=== PATIENT | male | born 1945 | race Caucasian/White ===

== ENCOUNTER → 2020-06-11 09:19 | Outpatient (BNVA) | payer MEDICARE, SELFPAY | PROVIDERS: PCP Internal Medicine; Visit Provider Internal Medicine | DX: I48.20 Chronic atrial fibrillation, unspecified (principal); Z51.81 Encounter for therapeutic drug level monitoring; Z79.01 Long term (current) use of anticoagulants | CPT/HCPCS: 85610; 99211 ==

== ENCOUNTER → 2020-06-24 08:49 | Outpatient (BNV) | payer MEDICARE, SELFPAY | PROVIDERS: PCP Internal Medicine; Visit Provider Internal Medicine Medical Oncology | DX: D61.818 Other pancytopenia (principal); D47.2 Monoclonal gammopathy; Z86.2 Personal history of diseases of the blood and blood-forming organs and certain disorders involving the immune mechanism | CPT/HCPCS: 99213; 99214 ==

== ENCOUNTER → 2020-08-27 09:23 | Outpatient (BNVA) | payer MEDICARE, SELFPAY | PROVIDERS: PCP Internal Medicine; Visit Provider Internal Medicine | DX: I48.20 Chronic atrial fibrillation, unspecified (principal); Z79.01 Long term (current) use of anticoagulants; Z51.81 Encounter for therapeutic drug level monitoring | CPT/HCPCS: 85610; 99211 ==

== ENCOUNTER → 2020-10-08 09:13 | Outpatient (BNVA) | payer MEDICARE, SELFPAY | PROVIDERS: PCP Internal Medicine; Visit Provider Internal Medicine | DX: I48.20 Chronic atrial fibrillation, unspecified (principal); Z51.81 Encounter for therapeutic drug level monitoring; Z79.01 Long term (current) use of anticoagulants | CPT/HCPCS: 85610; 99211 ==

== ENCOUNTER → 2020-11-05 09:13 | Outpatient (BNVA) | payer MEDICARE, SELFPAY | PROVIDERS: PCP Internal Medicine; Visit Provider Internal Medicine | DX: I48.20 Chronic atrial fibrillation, unspecified (principal); Z51.81 Encounter for therapeutic drug level monitoring; Z79.01 Long term (current) use of anticoagulants | CPT/HCPCS: 85610; 99211 ==

== ENCOUNTER → 2020-12-03 09:16 | Outpatient (BNVA) | payer MEDICARE, SELFPAY | PROVIDERS: PCP Internal Medicine; Visit Provider Internal Medicine | DX: I48.20 Chronic atrial fibrillation, unspecified (principal); Z51.81 Encounter for therapeutic drug level monitoring; Z79.01 Long term (current) use of anticoagulants | CPT/HCPCS: 85610; 99211 ==

== ENCOUNTER → 2020-12-31 09:11 | Outpatient (BNVA) | payer MEDICARE, SELFPAY | PROVIDERS: PCP Internal Medicine; Visit Provider Internal Medicine | DX: I48.20 Chronic atrial fibrillation, unspecified (principal); Z51.81 Encounter for therapeutic drug level monitoring; Z79.01 Long term (current) use of anticoagulants | CPT/HCPCS: 85610; 99211 ==

== ENCOUNTER → 2021-01-07 09:09 | Outpatient (BNVA) | payer MEDICARE, SELFPAY | PROVIDERS: PCP Internal Medicine; Visit Provider Internal Medicine | DX: I48.0 Paroxysmal atrial fibrillation (principal); Z51.81 Encounter for therapeutic drug level monitoring; Z79.01 Long term (current) use of anticoagulants | CPT/HCPCS: 85610; 99211 ==

== ENCOUNTER → 2021-02-04 08:58 | Outpatient (BNVA) | payer MEDICARE, SELFPAY | PROVIDERS: PCP Internal Medicine; Visit Provider Internal Medicine | DX: I48.20 Chronic atrial fibrillation, unspecified (principal); Z51.81 Encounter for therapeutic drug level monitoring; Z79.01 Long term (current) use of anticoagulants | CPT/HCPCS: 85610; 99211 ==

== ENCOUNTER → 2021-03-04 09:10 | Outpatient (BNVA) | payer MEDICARE, SELFPAY | PROVIDERS: PCP Internal Medicine; Visit Provider Internal Medicine | DX: I48.20 Chronic atrial fibrillation, unspecified (principal); Z51.81 Encounter for therapeutic drug level monitoring; Z79.01 Long term (current) use of anticoagulants | CPT/HCPCS: 85610; 99211 ==

== ENCOUNTER → 2021-04-01 08:05 | Outpatient (BNVA) | payer MEDICARE, SELFPAY | PROVIDERS: PCP Internal Medicine; Visit Provider Internal Medicine | DX: I48.20 Chronic atrial fibrillation, unspecified (principal); Z51.81 Encounter for therapeutic drug level monitoring; Z79.01 Long term (current) use of anticoagulants | CPT/HCPCS: 85610; 99211 ==

== ENCOUNTER → 2021-04-29 09:12 | Outpatient (BNVA) | payer MEDICARE, SELFPAY | PROVIDERS: PCP Internal Medicine; Visit Provider Internal Medicine | DX: I48.20 Chronic atrial fibrillation, unspecified (principal); Z51.81 Encounter for therapeutic drug level monitoring; Z79.01 Long term (current) use of anticoagulants | CPT/HCPCS: 85610; 99211 ==

== ENCOUNTER → 2021-05-27 09:13 | Outpatient (BNVA) | payer MEDICARE, SELFPAY | PROVIDERS: PCP Internal Medicine; Visit Provider Internal Medicine | DX: I48.20 Chronic atrial fibrillation, unspecified (principal); Z51.81 Encounter for therapeutic drug level monitoring; Z79.01 Long term (current) use of anticoagulants | CPT/HCPCS: 85610; 99211 ==

== ENCOUNTER → 2021-06-24 09:11 | Outpatient (BNVA) | payer MEDICARE, SELFPAY | PROVIDERS: PCP Internal Medicine; Visit Provider Internal Medicine | DX: I48.20 Chronic atrial fibrillation, unspecified (principal); Z51.81 Encounter for therapeutic drug level monitoring; Z79.01 Long term (current) use of anticoagulants | CPT/HCPCS: 85610; 99211 ==

== ENCOUNTER → 2021-07-22 09:19 | Outpatient (BNVA) | payer MEDICARE, SELFPAY | PROVIDERS: PCP Internal Medicine; Visit Provider Internal Medicine | DX: I48.20 Chronic atrial fibrillation, unspecified (principal); Z51.81 Encounter for therapeutic drug level monitoring; Z79.01 Long term (current) use of anticoagulants | CPT/HCPCS: 85610; 99211 ==

== ENCOUNTER → 2021-08-19 09:20 | Outpatient (BNVA) | payer MEDICARE, SELFPAY | PROVIDERS: PCP Internal Medicine; Visit Provider Internal Medicine | DX: I48.20 Chronic atrial fibrillation, unspecified (principal); Z51.81 Encounter for therapeutic drug level monitoring; Z79.01 Long term (current) use of anticoagulants | CPT/HCPCS: 85610; 99211 ==

== ENCOUNTER → 2021-09-16 09:13 | Outpatient (BNVA) | payer MEDICARE, SELFPAY | PROVIDERS: PCP Internal Medicine; Visit Provider Internal Medicine | DX: I48.20 Chronic atrial fibrillation, unspecified (principal); Z51.81 Encounter for therapeutic drug level monitoring; Z79.01 Long term (current) use of anticoagulants | CPT/HCPCS: 85610; 99211 ==

== ENCOUNTER → 2021-10-14 09:15 | Outpatient (BNVA) | payer MEDICARE, SELFPAY | PROVIDERS: PCP Internal Medicine; Visit Provider Internal Medicine | DX: I48.20 Chronic atrial fibrillation, unspecified (principal); Z51.81 Encounter for therapeutic drug level monitoring; Z79.01 Long term (current) use of anticoagulants | CPT/HCPCS: 85610; 99211 ==

== ENCOUNTER → 2021-11-12 09:22 | Outpatient (BNVA) | payer MEDICARE, SELFPAY | PROVIDERS: PCP Internal Medicine; Visit Provider Internal Medicine | DX: I48.20 Chronic atrial fibrillation, unspecified (principal); Z51.81 Encounter for therapeutic drug level monitoring; Z79.01 Long term (current) use of anticoagulants | CPT/HCPCS: 85610; 99211 ==

== ENCOUNTER → 2021-12-09 09:13 | Outpatient (BNVA) | payer MEDICARE, SELFPAY | PROVIDERS: PCP Internal Medicine; Visit Provider Internal Medicine | DX: I48.20 Chronic atrial fibrillation, unspecified (principal); Z51.81 Encounter for therapeutic drug level monitoring; Z79.01 Long term (current) use of anticoagulants | CPT/HCPCS: 85610; 99211 ==

== ENCOUNTER → 2022-01-13 09:26 | Outpatient (BNVA) | payer MEDICARE, SELFPAY | PROVIDERS: PCP Internal Medicine; Visit Provider Internal Medicine | DX: I48.20 Chronic atrial fibrillation, unspecified (principal); Z79.01 Long term (current) use of anticoagulants; Z51.81 Encounter for therapeutic drug level monitoring | CPT/HCPCS: 85610; 99211 ==

== ENCOUNTER → 2022-02-10 09:29 | Outpatient (BNVA) | payer MEDICARE, SELFPAY | PROVIDERS: PCP Internal Medicine; Visit Provider Internal Medicine | DX: I48.20 Chronic atrial fibrillation, unspecified (principal); Z79.01 Long term (current) use of anticoagulants; Z51.81 Encounter for therapeutic drug level monitoring | CPT/HCPCS: 85610; 99211 ==

== ENCOUNTER → 2022-03-10 09:31 | Outpatient (BNVA) | payer MEDICARE, SELFPAY | PROVIDERS: PCP Internal Medicine; Visit Provider Internal Medicine | DX: I48.20 Chronic atrial fibrillation, unspecified (principal); Z79.01 Long term (current) use of anticoagulants; Z51.81 Encounter for therapeutic drug level monitoring | CPT/HCPCS: 85610; 99211 ==

== ENCOUNTER 2022-03-29 12:46 | Outpatient (REF) | payer MEDICARE, SELFPAY ==
[2022-03-29 12:59] VITALS: BMI 26.4
[2022-03-29 13:03] VITALS: BP 189/83; PULSE 53; RESP 16; TEMP 36.9; O2SAT 95
== END 2022-03-29 12:47 | disposition home or self-care (01) ==
LOC: HO.MS 12:46
PROVIDERS: PCP Internal Medicine; Visit Provider Ophthalmology
PROC: (CPT 66821; principal; 2022-03-29 15:00)
DX: H26.491 Other secondary cataract, right eye (principal); Z96.1 Presence of intraocular lens; H40.013 Open angle with borderline findings, low risk, bilateral; D64.9 Anemia, unspecified
CPT/HCPCS: 66821

== ENCOUNTER → 2022-04-07 09:29 | Outpatient (BNVA) | payer MEDICARE, SELFPAY | PROVIDERS: PCP Internal Medicine; Visit Provider Internal Medicine | DX: I48.20 Chronic atrial fibrillation, unspecified (principal); Z79.01 Long term (current) use of anticoagulants; Z51.81 Encounter for therapeutic drug level monitoring | CPT/HCPCS: 85610; 99211 ==

== ENCOUNTER → 2022-05-05 08:22 | Outpatient (BNVA) | payer MEDICARE, SELFPAY | PROVIDERS: PCP Internal Medicine; Visit Provider Internal Medicine | DX: I48.20 Chronic atrial fibrillation, unspecified (principal); Z79.01 Long term (current) use of anticoagulants; Z51.81 Encounter for therapeutic drug level monitoring | CPT/HCPCS: 85610; 99211 ==

== ENCOUNTER → 2022-06-03 09:31 | Outpatient (BNVA) | payer MEDICARE, SELFPAY | PROVIDERS: PCP Internal Medicine; Visit Provider Internal Medicine | DX: I48.20 Chronic atrial fibrillation, unspecified (principal); Z79.01 Long term (current) use of anticoagulants; Z51.81 Encounter for therapeutic drug level monitoring | CPT/HCPCS: 85610; 99211 ==

== ENCOUNTER → 2022-06-30 09:11 | Outpatient (BNVA) | payer MEDICARE, SELFPAY | PROVIDERS: PCP Internal Medicine; Visit Provider Internal Medicine | DX: I48.20 Chronic atrial fibrillation, unspecified (principal); Z79.01 Long term (current) use of anticoagulants; Z51.81 Encounter for therapeutic drug level monitoring | CPT/HCPCS: 85610; 99211 ==

== ENCOUNTER → 2022-07-28 09:18 | Outpatient (BNVA) | payer MEDICARE, SELFPAY | PROVIDERS: PCP Internal Medicine; Visit Provider Internal Medicine | DX: I48.20 Chronic atrial fibrillation, unspecified (principal); Z79.01 Long term (current) use of anticoagulants; Z51.81 Encounter for therapeutic drug level monitoring | CPT/HCPCS: 85610; 99211 ==

== ENCOUNTER → 2022-08-25 09:07 | Outpatient (BNVA) | payer MEDICARE, SELFPAY | PROVIDERS: PCP Internal Medicine; Visit Provider Internal Medicine | DX: I48.20 Chronic atrial fibrillation, unspecified (principal); Z79.01 Long term (current) use of anticoagulants; Z51.81 Encounter for therapeutic drug level monitoring | CPT/HCPCS: 85610; 99211 ==

== ENCOUNTER → 2022-09-22 09:04 | Outpatient (BNVA) | payer MEDICARE, SELFPAY | PROVIDERS: PCP Internal Medicine; Visit Provider Internal Medicine | DX: I48.20 Chronic atrial fibrillation, unspecified (principal); Z79.01 Long term (current) use of anticoagulants; Z51.81 Encounter for therapeutic drug level monitoring | CPT/HCPCS: 85610; 99211 ==

== ENCOUNTER → 2022-10-20 09:23 | Outpatient (BNVA) | payer MEDICARE, SELFPAY | PROVIDERS: PCP Internal Medicine; Visit Provider Internal Medicine | DX: I48.20 Chronic atrial fibrillation, unspecified (principal); Z79.01 Long term (current) use of anticoagulants; Z51.81 Encounter for therapeutic drug level monitoring | CPT/HCPCS: 85610; 99211 ==

== ENCOUNTER → 2022-11-18 10:39 | Outpatient (BNVA) | payer MEDICARE, SELFPAY | PROVIDERS: PCP Internal Medicine; Visit Provider Internal Medicine | DX: I48.20 Chronic atrial fibrillation, unspecified (principal); Z79.01 Long term (current) use of anticoagulants; Z51.81 Encounter for therapeutic drug level monitoring | CPT/HCPCS: 85610; 99211 ==

== ENCOUNTER → 2022-12-15 09:17 | Outpatient (BNVA) | payer MEDICARE, SELFPAY | PROVIDERS: PCP Internal Medicine; Visit Provider Internal Medicine | DX: I48.20 Chronic atrial fibrillation, unspecified (principal); Z51.81 Encounter for therapeutic drug level monitoring; Z79.01 Long term (current) use of anticoagulants | CPT/HCPCS: 85610; 99211 ==

== ENCOUNTER → 2023-01-12 09:15 | Outpatient (BNVA) | payer MEDICARE, SELFPAY | PROVIDERS: PCP Internal Medicine; Visit Provider Internal Medicine | DX: I48.20 Chronic atrial fibrillation, unspecified (principal); Z79.01 Long term (current) use of anticoagulants; Z51.81 Encounter for therapeutic drug level monitoring | CPT/HCPCS: 85610; 99211 ==

== ENCOUNTER → 2023-02-08 09:10 | Outpatient (BNVA) | payer MEDICARE, SELFPAY | PROVIDERS: PCP Internal Medicine; Visit Provider Internal Medicine | DX: I48.20 Chronic atrial fibrillation, unspecified (principal); Z79.01 Long term (current) use of anticoagulants; Z51.81 Encounter for therapeutic drug level monitoring | CPT/HCPCS: 85610; 99211 ==

== ENCOUNTER 2023-02-21 08:36 | Outpatient (REF) | payer MEDICARE, SELFPAY ==
--- NOTE | ~2023-02-21 | XR_ITS ---
EXAMINATION: XR CHEST CLINICAL INFORMATION: Edema COMPARISON: 10/23/2007 TECHNIQUE: 2 views of the chest were obtained. FINDINGS: There is no evidence of acute parenchymal disease, pneumothorax, or pleural effusion. The cardiopericardial silhouette is enlarged. No evidence of pulmonary edema. XR/XR chest 2V IMPRESSION: 1. No acute parenchymal disease. 2. Mild cardiomegaly without pulmonary vascular congestion identified.
[2023-02-21 09:38] LABS: Appearance Urine Clear; Color Urine Dark Yellow; Glucose Urine UA 250 mg/dL (Negative); Leukocyte Esterase Urine Negative (Negative); Nitrite Urine Negative (Negative); PH 6.5 (5.0-9.0); Urine Blood Negative (Negative); Urine Ketones Negative (Negative); Urine Protein Negative (Neg-Trace)
[2023-02-21 10:09] LABS: Alanine Aminotransferase 20 U/L (0-40); Alkaline Phosphatase 60 U/L (39-117); Anion Gap 12 (12-20); Aspartate Amino Transferase 24 U/L (5-37); Bilirubin Total 1.2 mg/dL (0.0-1.0); Blood Urea Nitrogen 19 mg/dL (9-16); Calcium 9.5 mg/dL (8.4-10.2); Carbon Dioxide 29 mmol/L (22-29); Chloride 104 mmol/L (96-108); Estimated Glomerular Filt Rate > 60; Glucose Random 213 mg/dL (60-115); Potassium 3.3 mmol/L (3.3-5.1); Sodium 142 mmol/L (135-145); Total Protein 7.4 g/dL (6.5-8.0)
== END 2023-02-21 08:37 | disposition home or self-care (01) ==
LOC: HO.XRAY 08:36
PROVIDERS: PCP Internal Medicine; Visit Provider Internal Medicine
DX: R60.0 Localized edema (principal)
CPT/HCPCS: 36415; 71046; 80053; 81003

== ENCOUNTER → 2023-03-09 10:40 | Outpatient (REF) | payer MEDICARE, SELFPAY | LOC: HO.CARD 10:40 | PROVIDERS: PCP Internal Medicine; Visit Provider Internal Medicine | DX: R60.0 Localized edema (principal); I48.20 Chronic atrial fibrillation, unspecified; Z51.81 Encounter for therapeutic drug level monitoring; Z79.01 Long term (current) use of anticoagulants | CPT/HCPCS: 85610; 93306; 99211 ==

== ENCOUNTER 2023-04-06 09:10 | Outpatient (AMB) | payer MEDICARE, SELFPAY ==
--- NOTE | 2023-04-06 09:13 | MHC.OFFVISCO ---
Intake Intake Visit Reasons: Anticoagulation Allergies No Known Allergies Allergy (Mild, Verified 04/06/23 09:10) NOT APPLICABLE Medication List - Last Reconciled 04/06/23 by Alexandra Rivera RN calcium citrate 200 mg PO DAILY diltiazem HCl 1 cap PO DAILY multivitamin 1 tab PO DAILY warfarin 5 mg See Protocol PO DAILY Nursing Note INR 1.9-? out of therapeutic range Medications and supplements reviewed Patient status: pt states has to eat less sugar Medications or supplements: hctz 12.5mg daily- no interaction per micromedex Diet: eating more greens Denies any signs and symptoms of bleeding or clotting or unusual bruising Bleeding, bruising, clotting discussed Nutritional guidance given: no greens for 2 days, eat a red today Dose: 7.5mg today then 5mg daily F/U INR Date : 2 weeks? Patient verbalizing understanding of instructions given. 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
[2023-04-06 09:15] LABS: Prothrombin Time Whole Bld POC 23.2 sec (11.1-13.5); ~PT, ~INR - Anti Coag Clinic 1.9 (0.9-1.1)
== END 2023-04-06 09:21 | disposition home or self-care (01) ==
LOC: HO.ACS 09:10
PROVIDERS: PCP Internal Medicine; Visit Provider Internal Medicine
DX: Z79.01 Long term (current) use of anticoagulants (principal)

== ENCOUNTER → 2023-04-06 09:10 | Outpatient (BNVA) | payer MEDICARE, SELFPAY | PROVIDERS: PCP Internal Medicine; Visit Provider Internal Medicine | DX: I48.20 Chronic atrial fibrillation, unspecified (principal); Z79.01 Long term (current) use of anticoagulants; Z51.81 Encounter for therapeutic drug level monitoring | CPT/HCPCS: 85610; 99211 ==

== ENCOUNTER 2023-04-20 09:07 | Outpatient (AMB) | payer MEDICARE, SELFPAY ==
[2023-04-20 09:12] LABS: Prothrombin Time Whole Bld POC 29.3 sec (11.1-13.5); ~PT, ~INR - Anti Coag Clinic 2.4 (0.9-1.1)
--- NOTE | 2023-04-20 09:14 | MHC.OFFVISCO ---
Intake Intake Visit Reasons: Anticoagulation Allergies No Known Allergies Allergy (Mild, Verified 04/20/23 09:08) NOT APPLICABLE Medication List - Last Reconciled 04/20/23 by Emily Dumont RN calcium citrate 200 mg PO DAILY diltiazem HCl 1 cap PO DAILY hydrochlorothiazide 12.5 mg PO DAILY multivitamin 1 tab PO DAILY warfarin 5 mg See Protocol PO DAILY Nursing Note NO CP,SOB,DIET/MED CHANGES,FALLS OR SX OF BLEEDING. CONTINUE PRESENT DOSE AND FOLLOW-UP IN 4 WEEKS. GOOD UNDERASTANDING OF DOSING INSTR. 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
== END 2023-04-20 09:15 | disposition home or self-care (01) ==
LOC: HO.ACS 09:07
PROVIDERS: PCP Internal Medicine; Visit Provider Internal Medicine
DX: Z79.01 Long term (current) use of anticoagulants (principal)

== ENCOUNTER → 2023-04-20 09:07 | Outpatient (BNVA) | payer MEDICARE, SELFPAY | PROVIDERS: PCP Internal Medicine; Visit Provider Internal Medicine | DX: I48.20 Chronic atrial fibrillation, unspecified (principal); Z79.01 Long term (current) use of anticoagulants; Z51.81 Encounter for therapeutic drug level monitoring | CPT/HCPCS: 85610; 99211 ==

== ENCOUNTER 2023-05-19 10:12 | Outpatient (AMB) | payer MEDICARE, SELFPAY ==
[2023-05-19 10:40] LABS: Prothrombin Time Whole Bld POC 30.2 sec (11.1-13.5); ~PT, ~INR - Anti Coag Clinic 2.5 (0.9-1.1)
--- NOTE | 2023-05-19 10:44 | MHC.OFFVISCO ---
Intake Intake Visit Reasons: Anticoagulation Allergies No Known Allergies Allergy (Mild, Verified 05/19/23 10:35) NOT APPLICABLE Medication List - Last Reconciled 05/19/23 by Madison Larios RN calcium citrate 200 mg PO DAILY diltiazem HCl 1 cap PO DAILY hydrochlorothiazide 12.5 mg PO DAILY multivitamin 1 tab PO DAILY prednisolone acetate 1% drps ophthalmic (eye) warfarin 5 mg See Protocol PO DAILY Nursing Note INR: 2.5 in therapeutic range Medications and supplements reviewed No changes in health, diet, medications, or supplements, Denies any signs and symptoms of bleeding or bruising or clotting. 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
== END 2023-05-19 10:46 | disposition home or self-care (01) ==
LOC: HO.ACS 10:12
PROVIDERS: PCP Internal Medicine; Visit Provider Internal Medicine
DX: Z79.01 Long term (current) use of anticoagulants (principal)

== ENCOUNTER → 2023-05-19 10:12 | Outpatient (BNVA) | payer MEDICARE, SELFPAY | PROVIDERS: PCP Internal Medicine; Visit Provider Internal Medicine | DX: I48.20 Chronic atrial fibrillation, unspecified (principal); Z79.01 Long term (current) use of anticoagulants; Z51.81 Encounter for therapeutic drug level monitoring | CPT/HCPCS: 85610; 99211 ==

== ENCOUNTER 2023-06-22 09:09 | Outpatient (AMB) | payer MEDICARE, SELFPAY ==
--- NOTE | 2023-06-22 09:14 | MHC.OFFVISCO ---
Intake Intake Visit Reasons: Anticoagulation Allergies No Known Allergies Allergy (Mild, Verified 06/22/23 09:10) NOT APPLICABLE Medication List - Last Reconciled 06/22/23 by Alexandra Rivera RN calcium citrate 200 mg PO DAILY diltiazem HCl 1 cap PO DAILY hydrochlorothiazide 12.5 mg PO DAILY multivitamin 1 tab PO DAILY prednisolone acetate 1% drps ophthalmic (eye) warfarin 5 mg See Protocol PO DAILY Nursing Note INR: 2.7- in therapeutic range Medications and supplements reviewed- new bp med- will call acs with name No changes in health, diet, medications, or supplements, Denies any signs and symptoms of bleeding or bruising or clotting. 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
[2023-06-22 09:16] LABS: Prothrombin Time Whole Bld POC 32.4 sec (11.1-13.5); ~PT, ~INR - Anti Coag Clinic 2.7 (0.9-1.1)
== END 2023-06-22 09:19 | disposition home or self-care (01) ==
LOC: HO.ACS 09:09
PROVIDERS: PCP Internal Medicine; Visit Provider Internal Medicine
DX: Z79.01 Long term (current) use of anticoagulants (principal)

== ENCOUNTER → 2023-06-22 09:09 | Outpatient (BNVA) | payer MEDICARE, SELFPAY | PROVIDERS: PCP Internal Medicine; Visit Provider Internal Medicine | DX: I48.20 Chronic atrial fibrillation, unspecified (principal); Z79.01 Long term (current) use of anticoagulants; Z51.81 Encounter for therapeutic drug level monitoring | CPT/HCPCS: 85610; 99211 ==

== ENCOUNTER 2023-07-20 09:14 | Outpatient (AMB) | payer MEDICARE, SELFPAY ==
--- NOTE | 2023-07-20 09:26 | MHC.OFFVISCO ---
Intake Intake Visit Reasons: Anticoagulation Allergies No Known Allergies Allergy (Mild, Verified 07/20/23 09:23) NOT APPLICABLE Medication List - Last Reconciled 07/20/23 by Alexandra Rivera RN calcium citrate 200 mg PO DAILY diltiazem HCl 1 cap PO DAILY lisinopril-hydrochlorothiazide 10-12.5 mg 1 tab PO DAILY multivitamin 1 tab PO DAILY prednisolone acetate 1% drps ophthalmic (eye) warfarin 5 mg See Protocol PO DAILY Nursing Note INR: 2.2- in therapeutic range of 2-3 Medications and supplements reviewed- no changes No changes in health, diet, medications, or supplements, Denies any signs and symptoms of bleeding or bruising or clotting. 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
[2023-07-21 13:34] LABS: Prothrombin Time Whole Bld POC 26.6 sec (11.1-13.5); ~PT, ~INR - Anti Coag Clinic 2.2 (0.9-1.1)
== END 2023-07-20 09:35 | disposition home or self-care (01) ==
LOC: HO.ACS 09:14
PROVIDERS: PCP Internal Medicine; Visit Provider Internal Medicine
DX: Z79.01 Long term (current) use of anticoagulants (principal)

== ENCOUNTER → 2023-07-20 09:14 | Outpatient (BNVA) | payer MEDICARE, SELFPAY | PROVIDERS: PCP Internal Medicine; Visit Provider Internal Medicine | DX: I48.0 Paroxysmal atrial fibrillation (principal); Z79.01 Long term (current) use of anticoagulants; Z51.81 Encounter for therapeutic drug level monitoring | CPT/HCPCS: 85610; 99211 ==

== ENCOUNTER 2023-08-04 08:22 | Outpatient (AMB) | payer MEDICARE, SELFPAY ==
--- NOTE | 2023-08-04 08:40 | A.OFFVIS_ITS ---
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 Patient himself does not have any known cardiac issues like coronary disease, myocardial infarction or cardiomyopathy. He states he has had longstanding atrial fibrillation going back more than 10 years. He is not aware of any cardioversion or rhythm control management. He is on diltiazem for rate control and on warfarin for anticoagulation. He states for the most part he is doing fine and does not have any chest pain or shortness of breath or any other major cardiac symptoms. Few months back, he had some leg swelling but that is resolved now. He states because of the leg swelling he had echocardiogram which showed some abnormalities leading to referral. Otherwise, he states his is ill and he is frequently taking care of her and hence he can focus on himself. Blood pressure is on the higher side today but he states home blood pressures are lower and lisinopril/HCTZ was just added by his own PCP couple weeks ago. [facility] Medical History (Updated 08/04/23 @ 10:11 by John Castro MD) Persistent atrial fibrillation Chronic ITP (idiopathic thrombocytopenic purpura) History of pancytopenia Surgical History (Updated 08/04/23 @ 08:43 by Nelli Roberts) No pertinent past surgical history Family History (Updated 08/04/23 @ 08:43 by Nelli Roberts) Mother No problems noted. Father No problems noted. Social History Household Members: Spouse Housing: House Are you a primary behavioral health care manager to a significant other at home: No Do you presently have visiting nurse or other home services: No Alcohol intake: never Patient Tobacco Use Status: Never used Tobacco service: No Current occupational status: retired Review of Systems Const Denies chills, Denies daytime sleepiness, Denies fatigue, Denies fever(s), Denies frequent falls, Denies night sweats, Denies snoring, Denies weakness, Denies weight gain and Denies weight loss Eyes Denies loss of vision ENT Denies dizziness and Denies hearing loss Card Denies chest pain, Denies chest pain with activity, Denies syncope, Denies rapid heart rate, Denies edema, Denies claudication, Denies leg edema, Denies palpitations, Denies dyspnea, Denies dyspnea on exertion and Denies orthopnea Resp Denies cough, Denies excessive phlegm production, Denies dyspnea, Denies dyspnea on exertion, Denies snoring and Denies wheezing GI Denies abdominal pain, Denies hematochezia, Denies change in bowel habits, Denies change in stool character, Denies heartburn, Denies nausea and Denies vomiting Denies hematuria, Denies dysuria and Denies urinary frequency Musc Denies arthralgias, Denies muscle weakness, Denies numbness and Denies tingling Skin/Breast Denies nail changes and Denies rash Neuro Denies Abnormal speech present, Denies dizziness, Denies syncope, Denies frequent falls, Denies loss of vision, Denies memory loss, Denies numbness, Denies tingling and Denies weakness Psych Denies depression and Denies memory loss Endo Denies fatigue and Denies palpitations Aller/Immun Denies wheezing Physical Exam Vital Signs: Last Vital Signs Pulse 74 08/04/23 08:49 BP 162/90 H 08/04/23 08:49 BMI result Body Mass Index 27.9 Const General: comfortable and no acute distress Orientation/consciousness: patient oriented x3 HEENT Other: Unremarkable Head: Yes normal to inspection Neck Neck: Yes normal visual inspection Chest Chest palpation & inspection: normal inspection of the chest Resp Auscultation: clear to auscultation bilaterally Cardio Palpation: normal PMI Heart sounds: S1 normal heart sound present, S2 normal heart sound present, no gallops, no murmurs and no rubs GI Palpation (GI): Soft to palpation Back/Spine/Pelvis Other: unremarkable Skin General skin exam: no rashes or lesions noted Neuro General: patient oriented x3 Speech: No Abnormal speech present Extrem General: Yes normal to inspection Psych Mental Status: mental status grossly normal Office Procedures EKG Details: EKG shows atrial fibrillation at a rate of 74/Min. Voltage criteria for LVH and nonspecific ST-T changes. [id number], Complete Assessment & Plan Assessment & Plan (1) Persistent atrial fibrillation: Code(s): I48.19 - Other persistent atrial fibrillation Plan: Per patient, has been present for more than 10 years. Echocardiogram shows severe biatrial enlargement. Not suitable for rhythm control. We will check Holter for adequacy of rate control. Otherwise on anticoagulation. No changes. (2) Chronic right heart failure: Code(s): I50.812 - Chronic right heart failure Plan: Echocardiogram shows severely increased right ventricular size with preserved function. He has had some leg swelling before but nothing at this time. Check sleep study for any obstructive sleep apnea. (3) Asymmetric septal hypertrophy: Code(s): I42.2 - Other hypertrophic cardiomyopathy Plan: Echocardiogram shows severe septal hypertrophy which could be a consequence of longstanding poorly controlled hypertension. Per patient meds were just changed-addition of lisinopril/HCTZ. Probably needs more meds in the future. To be decided. According to him, home blood pressures are much lower than office pressures. May need 24 hour blood pressure monitoring. (4) Valvular heart disease: Code(s): I38 - Endocarditis, valve unspecified Plan: Echocardiogram with mild mitral regurgitation, mild aortic regurgitation [id number] tricuspid regurgitation. Likely all consequence of long- standing atrial fibrillation as well as hypertension. Not hemodynamically significant this time. (5) Ascending aorta dilatation: Code(s): I77.810 - Thoracic aortic ectasia Plan: Ascending aortic size 4.2 cm. To be followed. This warrants aggressive blood pressure management. Orders: Orders ECG 3 day holter monitor Today I48.19 - Other persistent atrial fibrillation RT home sleep study Today G47.33 - Obstructive sleep apnea (adult) (pediatric), I48.19 - Other persistent atrial fibrillation Coding Level of Care Code New Pt Level 4 (78578) Diagnoses Persistent atrial fibrillation I48.19 Chronic right heart failure I50.812 Asymmetric septal hypertrophy I42.2 Valvular heart disease I38 Ascending aorta dilatation I77.810 CPT Codes EKG - CPT: 31906-[id number], Complete ([id number])
[2023-08-04 08:49] VITALS: BP 162/90; PULSE 74; BMI 27.9
== END 2023-08-04 08:59 | disposition home or self-care (01) ==
PROVIDERS: PCP Internal Medicine; Visit Provider Internal Medicine
DX: I48.19 Other persistent atrial fibrillation (principal); I50.812 Chronic right heart failure; I42.2 Other hypertrophic cardiomyopathy; I38 Endocarditis, valve unspecified; I77.810 Thoracic aortic ectasia
CPT/HCPCS: 93010; 99204

== ENCOUNTER → 2023-08-04 08:22 | Outpatient (BNVA) | payer MEDICARE, SELFPAY | PROVIDERS: PCP Internal Medicine; Visit Provider Internal Medicine | DX: I48.19 Other persistent atrial fibrillation (principal); I50.812 Chronic right heart failure; I42.2 Other hypertrophic cardiomyopathy; I38 Endocarditis, valve unspecified; I77.810 Thoracic aortic ectasia | CPT/HCPCS: 93005; 99202 ==

== ENCOUNTER → 2023-08-17 09:10 | Outpatient (BNVA) | payer MEDICARE, SELFPAY | PROVIDERS: PCP Internal Medicine; Visit Provider Internal Medicine | DX: I48.20 Chronic atrial fibrillation, unspecified (principal); Z79.01 Long term (current) use of anticoagulants; Z51.81 Encounter for therapeutic drug level monitoring | CPT/HCPCS: 85610; 99211 ==

== ENCOUNTER 2023-09-15 09:14 | Outpatient (AMB) | payer MEDICARE, SELFPAY ==
--- NOTE | 2023-09-15 09:20 | MHC.OFFVISCO ---
Intake Intake Visit Reasons: Anticoagulation Allergies No Known Allergies Allergy (Mild, Verified 09/15/23 09:17) NOT APPLICABLE Medication List - Last Reconciled 09/15/23 by Alexandra Rivera RN diltiazem HCl 300 mg PO DAILY lisinopril-hydrochlorothiazide 10-12.5 mg 1 tab PO DAILY multivitamin 1 tab PO DAILY prednisolone acetate 1% drps ophthalmic (eye) warfarin 5 mg See Protocol PO DAILY Nursing Note INR: 2.2- in therapeutic range of 2-3 Medications and supplements reviewed- no changes No changes in health, diet, medications, or supplements, Denies any signs and symptoms of bleeding or bruising or clotting. Bleeding, bruising, clotting discussed Nutritional guidance given Dose: 5 mg x 7 F/U INR: 4 weeks Patient verbalizes understanding of instructions given Anti-Coag Initial Assessment Social Hx Patient Tobacco Use Status: Never used Tobacco alcohol intake: never Coding Level of Care Code Est Patient Level 1 Diagnoses Current use of anticoagulant therapy Z79.01 Results AMB INR Fingerstick AMB INR Fingerstick 2.2 Last Edit by Alexandra Rivera RN on 09/15/23 09:22 Assessment & Plan Assessment & Plan (1) Current use of anticoagulant therapy: Code(s): Z79.01 - alf (current) use of anticoagulants Category: Medical
[2023-09-16 08:52] LABS: Prothrombin Time Whole Bld POC 26.5 sec (11.1-13.5); ~PT, ~INR - Anti Coag Clinic 2.2 (0.9-1.1)
== END 2023-09-15 09:26 | disposition home or self-care (01) ==
LOC: HO.ACS 09:14
PROVIDERS: PCP Internal Medicine; Visit Provider Internal Medicine
DX: Z79.01 Long term (current) use of anticoagulants (principal)

== ENCOUNTER → 2023-09-15 09:14 | Outpatient (BNVA) | payer MEDICARE, SELFPAY | PROVIDERS: PCP Internal Medicine; Visit Provider Internal Medicine | DX: I48.20 Chronic atrial fibrillation, unspecified (principal); Z79.01 Long term (current) use of anticoagulants; Z51.81 Encounter for therapeutic drug level monitoring | CPT/HCPCS: 85610; 99211 ==

== ENCOUNTER → 2023-10-12 10:26 | Outpatient (REF) | payer MEDICARE, SELFPAY ==
--- NOTE | 2023-10-12 10:30 | HM_ITS ---
Conclusion: 1. Patient was monitored for total period of 3 days 2. Baseline was atrial fibrillation with average heart of 58 beats per minute with frequent slow ventricular response, 49% of time heart rate below 60 beats per minute 3. Multiple pauses noted greater than 2.5 seconds with longest pause of 3.3 seconds with no significant pauses greater than 5 seconds 4. Frequent PVCs noted with total burden of 1.4%, mostly isolated 5. No patient reported symptoms MTDD
== END ==
LOC: HO.CARD 10:26
PROVIDERS: PCP Internal Medicine; Visit Provider Internal Medicine
DX: I48.19 Other persistent atrial fibrillation (principal); Z51.81 Encounter for therapeutic drug level monitoring; Z79.01 Long term (current) use of anticoagulants
CPT/HCPCS: 85610; 93242; 99211

== ENCOUNTER → 2023-10-12 10:30 | Outpatient (BNV) | payer MEDICARE, SELFPAY | PROVIDERS: PCP Internal Medicine; Visit Provider Internal Medicine Cardiovascular Disease | DX: I48.19 Other persistent atrial fibrillation (principal) | CPT/HCPCS: 93244 ==

== ENCOUNTER 2023-10-12 10:44 | Outpatient (AMB) | payer MEDICARE, SELFPAY ==
--- NOTE | 2023-10-12 10:49 | MHC.OFFVISCO ---
Intake Intake Visit Reasons: Anticoagulation Allergies No Known Allergies Allergy (Mild, Verified 10/12/23 10:45) NOT APPLICABLE Medication List - Last Reconciled 10/12/23 by Alexandra Rivera RN diltiazem HCl 300 mg PO DAILY lisinopril-hydrochlorothiazide 10-12.5 mg 1 tab PO DAILY multivitamin 1 tab PO DAILY prednisolone acetate 1% drps ophthalmic (eye) warfarin 5 mg See Protocol PO DAILY Nursing Note INR: 2.7- in therapeutic range of 2-3 Medications and supplements reviewed- no changes No changes in health, diet, medications, or supplements, Denies any signs and symptoms of bleeding or bruising or clotting. Bleeding, bruising, clotting discussed Nutritional guidance given Dose: 5mg x 7 F/U INR: 4 weeks Patient verbalizes understanding of instructions given pt to have sleep study and holtor monitor today Anti-Coag Initial Assessment Social Hx Patient Tobacco Use Status: Never used Tobacco alcohol intake: never Coding Level of Care Code Est Patient Level 1 Diagnoses Current use of anticoagulant therapy Z79.01 Results AMB INR Fingerstick AMB INR Fingerstick 2.7 Last Edit by Alexandra Rivera RN on 10/12/23 10:51 Assessment & Plan Assessment & Plan (1) Current use of anticoagulant therapy: Code(s): Z79.01 - long-term (current) use of anticoagulants Category: Medical
[2023-10-12 10:51] LABS: Prothrombin Time Whole Bld POC 32.4 sec (11.1-13.5); ~PT, ~INR - Anti Coag Clinic 2.7 (0.9-1.1)
== END 2023-10-12 10:54 | disposition home or self-care (01) ==
LOC: HO.ACS 10:44
PROVIDERS: PCP Internal Medicine; Visit Provider Internal Medicine
DX: Z79.01 Long term (current) use of anticoagulants (principal)

== ENCOUNTER → 2023-10-12 11:14 | Outpatient (REF) | payer MEDICARE, SELFPAY | LOC: HO.SL 11:14 | PROVIDERS: PCP Internal Medicine; Visit Provider Internal Medicine | DX: Z13.89 Encounter for screening for other disorder (principal) ==

== ENCOUNTER → 2023-10-20 09:05 | Outpatient (BNVA) | payer MEDICARE, SELFPAY | PROVIDERS: PCP Internal Medicine; Visit Provider Nurse Practitioner Family ==

== ENCOUNTER → 2023-11-07 14:48 | Outpatient (REF) | payer MEDICARE, SELFPAY | LOC: HO.SL 14:48 | PROVIDERS: PCP Internal Medicine; Visit Provider Internal Medicine | DX: G47.33 Obstructive sleep apnea (adult) (pediatric) (principal) | CPT/HCPCS: 95806 ==

== ENCOUNTER → 2023-11-07 15:05 | Outpatient (BNV) | payer MEDICARE, SELFPAY | PROVIDERS: PCP Internal Medicine; Visit Provider Internal Medicine | DX: G47.33 Obstructive sleep apnea (adult) (pediatric) (principal) | CPT/HCPCS: 95806 ==

== ENCOUNTER 2023-11-09 09:11 | Outpatient (AMB) | payer MEDICARE, SELFPAY ==
--- NOTE | 2023-11-09 09:25 | MHC.OFFVISCO ---
Intake Intake Visit Reasons: Anticoagulation Allergies No Known Allergies Allergy (Mild, Verified 11/09/23 09:21) NOT APPLICABLE Medication List - Last Reconciled 11/09/23 by Alexandra Rivera RN diltiazem HCl 300 mg PO DAILY lisinopril-hydrochlorothiazide 10-12.5 mg 1 tab PO DAILY multivitamin 1 tab PO DAILY warfarin 5 mg See Protocol PO DAILY Nursing Note INR: 2.5- in therapeutic range of 2-3 Medications and supplements reviewed- no changes No changes in health, diet, medications, or supplements, Denies any signs and symptoms of bleeding or bruising or clotting. Bleeding, bruising, clotting discussed Nutritional guidance given Dose: 5 mg x 7 F/U INR: 4 weeks Patient verbalizes understanding of instructions given Anti-Coag Initial Assessment Social Hx Patient Tobacco Use Status: Never used Tobacco alcohol intake: never Questionnaires HAS-BLED Does the patient had uncontrolled Hypertension?: No Does the patient have renal disease?: No Does the patient have liver disease?: No Does the patient have a history of stroke?: No Has the patient had major bleeding or predisposition to bleeding?: No Does the patient have labile INRs?: No Is the patient over 65 years of age?: Yes Is the patient on medications that gives them a predisposition to bleeding?: Yes Does the patient use alcohol?: No HAS-BLED Score: 2 CHADSVASC Age: 75 or over Gender: Male Does the patient have a history of CHF?: No Does the patient have a history of Hypertension?: Yes Does the patient have a history of Stroke/TIA/Thromboembolism?: No Does the patient have a history of Vascular Disease (prior IN, PAD or aortic plaque)?: No Does the patient have a history of Diabetes?: No CHADS VACS Score: 3 Lynda Prediction Score Rsk VTE Active Cancer: No Previous VTE, excluding superficial vein thrombosis: No Reduced mobility: No Already known Thrombophilic Condition: No With-in last month Trauma and/or Surgery: No Elderly 70 year or older: Yes Heart and/or Respiratory Failure: No Acute Myocardial infarction and/or Ischemic Stroke: No Acute Infection and/or Rheumatologic Disorder: No Obesity (BMI 30 or greater): No Ongoing Hormonal Treatment: No Score: 1 Lynda Score less than 4; Low Risk of VTE Lynda Score 4 or greater; High Risk of VTE Coding Level of Care Code Est Patient Level 1 Diagnoses Current use of anticoagulant therapy Z79.01 Assessment & Plan Assessment & Plan (1) Current use of anticoagulant therapy: 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
[2023-11-09 09:26] LABS: Prothrombin Time Whole Bld POC 29.6 sec (11.1-13.5); ~PT, ~INR - Anti Coag Clinic 2.5 (0.9-1.1)
== END 2023-11-09 09:36 | disposition home or self-care (01) ==
LOC: HO.ACS 09:11
PROVIDERS: PCP Internal Medicine; Visit Provider Internal Medicine
DX: Z79.01 Long term (current) use of anticoagulants (principal)

== ENCOUNTER → 2023-11-09 09:11 | Outpatient (BNVA) | payer MEDICARE, SELFPAY | PROVIDERS: PCP Internal Medicine; Visit Provider Internal Medicine | DX: I48.20 Chronic atrial fibrillation, unspecified (principal); Z79.01 Long term (current) use of anticoagulants; Z51.81 Encounter for therapeutic drug level monitoring | CPT/HCPCS: 85610; 99211 ==

== ENCOUNTER 2023-11-18 09:12 | Outpatient (AMB) | payer MEDICARE, SELFPAY ==
[2023-11-18 09:14] VITALS: BP 178/88; PULSE 85; BMI 26.4
--- NOTE | 2023-11-18 09:14 | A.OFFVIS_ITS ---
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 Today he reports he feels well. He states that when he comes to the office is he becomes anxious and that is why his heart rate and blood pressure are elevated. Does not want to hear any bad news. He says at home his heart rate is in the 50s and as low as 40s at times. No reports of chest discomfort at rest or with activity. No heart palpitations, lightheadedness, presyncope, syncope, falls. No shortness of breath, PND, orthopnea or edema. He says he typically takes a nap in the daytime. He has started to do some yd work and has been feeling good with that. He is taking his meds as directed. Is asking about Eliquis and would like to come off Coumadin. No bleeding issues reported. Has PCP follow-up next week. [facility] Medical History Persistent atrial fibrillation Chronic ITP (idiopathic thrombocytopenic purpura) History of pancytopenia Surgical History No pertinent past surgical history Family History Mother No problems noted. Father No problems noted. Social History Household Members: Spouse Housing: House Are you a primary clinical care manager to a significant other at home: No Do you presently have visiting nurse or other home services: No Alcohol intake: never Patient Tobacco Use Status: Never used Tobacco service: No Current occupational status: retired Review of Systems Const All systems reviewed & are unremarkable except as noted in HPI and below ENT Denies dizziness Card Denies chest pain, Denies chest pain at rest, Denies chest pain with activity, Denies rapid heart rate, Denies pedal edema, Denies edema, Denies leg edema, Denies lightheadedness, Denies palpitations, Denies dyspnea, Denies dyspnea on exertion and Denies orthopnea Resp Denies cough, Denies dyspnea and Denies dyspnea on exertion GI Denies hematochezia and Denies change in stool character Musc Denies abnormal gait, Denies limited range of motion, Denies muscle cramps, Denies muscle weakness, Denies numbness, Denies radiating pain into limb, Denies stiffness and Denies tingling Neuro Denies abnormal gait, Denies dizziness, Denies numbness and Denies tingling Endo Denies palpitations Physical Exam Vital Signs: Last Vital Signs Pulse 94 11/18/23 09:14 BMI result Body Mass Index 26.4 Const General: cooperative, comfortable and no acute distress Orientation/consciousness: patient oriented x3 Neck Neck: Yes normal visual inspection and Yes no JVD Resp Effort & Inspection: normal respiratory effort Auscultation: clear to auscultation bilaterally, no crackles, no rales, no rhonchi and no wheezes Cardio Jugular venous distension: no JVD Rate: regular rate Rhythm: abnormal rhythm Heart sounds: S1 normal heart sound present, S2 normal heart sound present, no murmurs and no rubs Neuro General: patient oriented x3 Extrem General: Yes normal to inspection, No no pedal edema and No calf tenderness Psych Appearance: grossly normal Mental Status: mental status grossly normal Speech and movement: Normal speech and movement present Assessment & Plan Assessment & Plan (1) Persistent atrial fibrillation: Code(s): I48.19 - Other persistent atrial fibrillation Plan: History of persistent atrial fibrillation. He is treated with just heart rate control using diltiazem. He is currently at 300 mg daily and tells me he has been on this dose for at least 10 years. He feels good without any concerning symptoms. Echocardiogram done 03/09/2023 showed EF 55%, severe biatrial enlargement, severe RV enlargement, mild pulmonary hypertension. No signs of heart failure on examination. Holter monitor done on 10/12/2023 for 3 days shows atrial fibrillation with average heart rate 58, 49% of the time heart rate less than 60, pauses ranging from 2.5 to max 3.3 seconds, PVCs 1.4% of time. Pulse is irregularly irregular on exam. Denies any concerning palpitations. Will continue on current diltiazem as he is asymptomatic. He is on warfarin for anticoagulation with INR goal 2-3. Follows with the [facility]. Is asking about the foreign exchange student coordinator to Eliquis. Says he called his insurance company and was told the co-pay would be about 40 dollars per month. At this time will order Eliquis 5 mg b.i.d. instructed to obtain Eliquis then have INR checked. Once INR is less than 2 he can start Eliquis. I will notify the anticoagulation clinic of this plan. Any issues with obtaining Eliquis he will remain on Coumadin. Cardiology office visit 6 months, sooner if needed (2) Asymmetric septal hypertrophy: Code(s): I42.2 - Other hypertrophic cardiomyopathy Plan: Last echocardiogram shows severe septal asymmetric hypertrophy. He denies any concerning shortness of breath. No presyncope, syncope. Holter does show PVCs, no other significant arrhythmia. Blood pressure is elevated today. Will adjust meds for better blood pressure control. (3) Ascending aorta dilatation: Code(s): I77.810 - Thoracic aortic ectasia Plan: Last echo shows ascending aorta 4.2 cm. Will continue to follow with periodic echoes. (4) Hypertension: Code(s): I10 - Essential (primary) hypertension Plan: Blood pressure elevated today at 178/88. He tells me he did take his medications this morning. He reports being anxious in the office and that is why his blood pressure is elevated. Will increase his lisinopril/hydrochlorothiazide dose to 20 mg/12.5 mg from 10 mg/12.5 mg. Plan for BMP in 1 week. Does have PCP follow-up in 5 days. His blood pressure will be rechecked at his PCP office. Will fax this note to PCP so that he is aware of this recent change and need for routine labs in about a week. (5) Valvular heart disease: Code(s): I38 - Endocarditis, valve unspecified Plan: Last echo showing mild mitral regurgitation and [id number] tricuspid regurgitation. No signs of heart failure on examination. (6) Current use of anticoagulant therapy: Code(s): Z79.01 - buttermaker continuous churn (current) use of anticoagulants Plan: Anticoagulation with Coumadin. Changing over to Eliquis if co-pay is reasonable. (7) Sleep apnea: Code(s): G47.30 - Sleep apnea, unspecified Plan: Sleep study done on 11/17/2023 showing moderately severe obstructive sleep apnea, nocturnal hypoxia with sats running less than 88% during the night. He does admit to daytime sleepiness and needing to take a nap most days. He does have persistent atrial fibrillation, mild pulmonary hypertension tension with RV enlargement. Will refer him to pulmonology for further evaluation and treatment. He is agreeable. Plan Time spent on chart review, documentation, interview and assessment Orders: Orders Basic Metabolic Panel 1 Week I10 - Essential (primary) hypertension Referrals Pulmonary Medicine Referral G47.30 - Sleep apnea, unspecified Medications: New lisinopril-hydrochlorothiazide 20-12.5 mg Dose increase 1 tab PO DAILY 30 tabs 5RF apixaban (Eliquis) 5 mg PO BID 60 tabs 5RF Coding Level of Care Code Est Pt Level 4 (26087) Diagnoses Persistent atrial fibrillation I48.19 Asymmetric septal hypertrophy I42.2 Ascending aorta dilatation I77.810 Hypertension I10 Valvular heart disease I38 Current use of anticoagulant therapy Z79.01 Sleep apnea G47.30 Time Spent (min) 30
== END 2023-11-18 10:11 | disposition home or self-care (01) ==
PROVIDERS: PCP Internal Medicine; Visit Provider Nurse Practitioner Family
DX: I48.19 Other persistent atrial fibrillation (principal); I42.2 Other hypertrophic cardiomyopathy; I77.810 Thoracic aortic ectasia; I10 Essential (primary) hypertension; I38 Endocarditis, valve unspecified; Z79.01 Long term (current) use of anticoagulants; G47.30 Sleep apnea, unspecified
CPT/HCPCS: 99214

== ENCOUNTER → 2023-11-18 09:12 | Outpatient (BNVA) | payer MEDICARE, SELFPAY | PROVIDERS: PCP Internal Medicine; Visit Provider Nurse Practitioner Family | DX: I48.19 Other persistent atrial fibrillation (principal); I42.2 Other hypertrophic cardiomyopathy; I77.810 Thoracic aortic ectasia; I10 Essential (primary) hypertension; I38 Endocarditis, valve unspecified; Z79.01 Long term (current) use of anticoagulants | CPT/HCPCS: 99212 ==

== ENCOUNTER 2023-12-07 09:13 | Outpatient (AMB) | payer MEDICARE, SELFPAY ==
[2023-12-07 09:24] LABS: Prothrombin Time Whole Bld POC 26.5 sec (11.1-13.5); ~PT, ~INR - Anti Coag Clinic 2.2 (0.9-1.1)
--- NOTE | 2023-12-07 12:37 | MHC.OFFVISCO ---
Intake Intake Visit Reasons: Anticoagulation Allergies No Known Allergies Allergy (Mild, Verified 12/07/23 09:17) NOT APPLICABLE Medication List - Last Reconciled 12/07/23 by Emily Dumont RN apixaban (Eliquis) 5 mg PO BID diltiazem HCl 300 mg PO DAILY lisinopril-hydrochlorothiazide 20-12.5 mg 1 tab PO DAILY multivitamin 1 tab PO DAILY warfarin 5 mg PO DAILY Nursing Note PT.HELD WARFARIN YESTERDAY PREV.ADVISED TO PREPARE TO START ELOQUIS. ADV. DISCONTINUE WARFARIN TODAY, HAVE GREENS AND START ELOQUIS TOMORROW DIRECTED. PT.VERB.GOOD UNDERSTANDING OF DOSING INSTR. PT.AGREES TO CALL [facility] AT ANY TIME IF HE HAS ANY QUESTIONS OR CONCERNS THAT ARISE. MAY Anti-Coag Initial Assessment Social Hx Patient Tobacco Use Status: Never used Tobacco alcohol intake: never Coding Level of Care Code Est Patient Level 1 Diagnoses Current use of anticoagulant therapy Z79.01 Assessment & Plan Assessment & Plan (1) Current use of anticoagulant therapy: Code(s): Z79.01 - [facility] (current) use of anticoagulants Category: Medical Medications: On Hold apixaban (Eliquis) Hold Comment: Doctor's Order 5 mg PO BID 60 tabs 5RF
== END 2023-12-07 12:44 | disposition home or self-care (01) ==
LOC: HO.ACS 09:13
PROVIDERS: PCP Internal Medicine; Visit Provider Internal Medicine
DX: Z79.01 Long term (current) use of anticoagulants (principal)

== ENCOUNTER → 2023-12-07 09:13 | Outpatient (BNVA) | payer MEDICARE, SELFPAY | PROVIDERS: PCP Internal Medicine; Visit Provider Internal Medicine | DX: I48.20 Chronic atrial fibrillation, unspecified (principal); Z79.01 Long term (current) use of anticoagulants; Z51.81 Encounter for therapeutic drug level monitoring | CPT/HCPCS: 85610; 99211 ==

== ENCOUNTER 2024-01-03 09:45 | Outpatient (AMB) | payer MEDICARE, SELFPAY ==
[2024-01-03 09:47] VITALS: BP 146/82; PULSE 90; O2SAT 96; BMI 26.2
--- NOTE | 2024-01-03 09:47 | MHC.OFFVIS ---
Vital Signs 01/03/24 09:47 Height 6 ft 1 in Weight 198 lb 6.656 oz BMI 26.2 BP 146/82 H Blood Pressure Location Rt brachial Position Sitting Pulse 90 Pulse Source Doppler Pulse Oximetry (%) 96 Oxygen Delivery Method Room Air Intake Visit Reasons: sleep apnea Allergies No Known Allergies Allergy (Mild, Verified 12/07/23 09:17) NOT APPLICABLE HPI HPI sleep apnea: Details: 78-year-old gentleman with underlying AFib on anticoagulation and recent diagnosis of moderate obstructive sleep apnea referred for management of his sleep apnea symptoms. Patient's admits to unrestful sleep and is interested in trying CPAP therapy. His sleep study showed AHI of 28. [facility] Medical History Persistent atrial fibrillation Chronic ITP (idiopathic thrombocytopenic purpura) History of pancytopenia Surgical History No pertinent past surgical history Family History Mother No problems noted. Father No problems noted. Social History Household Members: Spouse Housing: House Are you a primary pharmacist critical care to a significant other at home: No Do you presently have visiting nurse or other home services: No Alcohol intake: never Patient Tobacco Use Status: Never used Tobacco service: No Current occupational status: retired Review of Systems Const Denies daytime sleepiness, Denies excessive sweating, Denies fatigue, Denies fever(s), Denies lethargy, Denies malaise, Denies night sweats, Denies snoring and Denies weight loss Eyes Denies blurry vision and Denies itchy eyes ENT Denies nasal congestion, Denies post nasal drip, Denies sinus pain, Denies sinus pressure and Denies other ( Thrush) Card Denies chest pain, Denies pedal edema, Denies dyspnea, Denies orthopnea and Denies paroxysmal nocturnal dyspnea Resp Denies cough, Denies hemoptysis, Denies excessive phlegm production, Denies dyspnea, Denies snoring and Denies wheezing GI Denies abdominal pain and Denies heartburn Musc Denies myalgias, Denies arthralgias and Denies joint swelling Skin/Breast Denies rash Neuro Denies memory loss and Denies seizure-like activity Psych Denies abnormal sleep pattern, Denies anxiety and Denies memory loss Endo Denies excessive sweating, Denies fatigue and Denies heat intolerance Paul/Lymph Denies easy bruising Aller/Immun Denies itchy eyes, Denies seasonal rhinorrhea and Denies wheezing Physical Exam Vital Signs: Last Vital Signs Pulse 90 01/03/24 09:47 BP 146/82 H 01/03/24 09:47 Pulse Ox 96 01/03/24 09:47 Oxygen Delivery Method Room Air 01/03/24 09:47 BMI result Body Mass Index 26.2 Const General: no acute distress and alert Nutritional Appearance: not obese Orientation/consciousness: Other orientation findings ( oriented) HEENT Head: Yes atraumatic Eyes General: appearance normal, both eyes and all related structures Sclerae: sclerae normal EOM: EOMs intact bilaterally Neck Neck: Yes supple Lymphatic: no lymphadenopathy noted Resp Effort & Inspection: normal respiratory effort and no use of accessory muscles Auscultation: clear to auscultation bilaterally Cardio Rate: regular rate Rhythm: regular rhythm Heart sounds: no gallops, no murmurs and no rubs Skin General skin exam: other ( warm) Extrem General: No clubbing, No cyanosis and No edema Assessment & Plan Assessment & Plan (1) Sleep apnea: Code(s): G47.30 - Sleep apnea, unspecified Category: Medical Plan: Results of sleep study reviewed, underlying moderate obstructive sleep apnea. Will start on APAP of 6-16 cm of water. Coding Level of Care Code New Pt Level 3 (34463) Diagnoses Sleep apnea G47.30
== END 2024-01-03 10:03 | disposition home or self-care (01) ==
PROVIDERS: PCP Internal Medicine; Referring Provider Nurse Practitioner Family; Visit Provider Internal Medicine Pulmonary Disease
DX: G47.30 Sleep apnea, unspecified (principal)
CPT/HCPCS: 99203

== ENCOUNTER → 2024-01-03 09:45 | Outpatient (BNVA) | payer MEDICARE, SELFPAY | PROVIDERS: PCP Internal Medicine; Referring Provider Nurse Practitioner Family; Visit Provider Internal Medicine Pulmonary Disease | DX: G47.33 Obstructive sleep apnea (adult) (pediatric) (principal); I48.91 Unspecified atrial fibrillation; Z79.01 Long term (current) use of anticoagulants | CPT/HCPCS: 99202 ==

== ENCOUNTER 2024-05-22 08:44 | Outpatient (AMB) | payer MEDICARE, SELFPAY ==
[2024-05-22 08:49] VITALS: BP 160/74; PULSE 61; BMI 25.7
--- NOTE | 2024-05-22 08:49 | A.OFFVIS_ITS ---
Vital Signs 05/22/24 08:49 Height 6 ft 1 in Weight 194 lb 14.218 oz BMI 25.7 BP 160/74 H Blood Pressure Location Lt brachial Position Sitting Pulse 61 Intake Visit Reasons: 6 month follow up Visitor Information Assistant Required: No Accompanied by: Self / Same As Patient Allergies No Known Allergies Allergy (Mild, Verified 01/12/24 08:19) NOT APPLICABLE Medication List - Last Reconciled 05/22/24 by John Castro MD apixaban (Eliquis) 5 mg PO BID diltiazem HCl CD 300 mg PO DAILY lisinopril-hydrochlorothiazide 20-12.5 mg 1 tab PO DAILY multivitamin 1 tab PO DAILY HPI Comments Details: Ty returns for follow-up. He was previously referred because of an abnormal echocardiogram. Patient himself does not have any documented coronary disease or myocardial infarction or cardiomyopathy. Longstanding atrial fibril lation going back more than 10 years unlikely permanent. He is not aware of any cardioversion or antiarrhythmic use in the past. Remains on diltiazem for rate control and Eliquis for anticoagulation. Otherwise, poorly controlled hypertension and blood pressures are quite high in the clinic. However, he states that home blood pressures are much lower. Patient himself has no clear- cut cardiac symptoms. He states he feels well. [facility] Medical History Persistent atrial fibrillation Chronic ITP (idiopathic thrombocytopenic purpura) History of pancytopenia Surgical History No pertinent past surgical history Family History Mother No problems noted. Father No problems noted. Social History Household Members: Spouse Housing: House Are you a primary special needs child caregiver to a significant other at home: No Do you presently have visiting nurse or other home services: No Alcohol intake: never Patient Tobacco Use Status: Never used Tobacco service: No Current occupational status: retired Review of Systems Const Denies chills, Denies fatigue, Denies fever(s), Denies weight gain and Denies weight loss ENT Denies dizziness Card Denies chest pain, Denies leg edema, Denies lightheadedness, Denies palpitations, Denies dyspnea on exertion, Denies orthopnea and Denies other Resp Denies cough and Denies dyspnea on exertion GI Denies hematochezia and Denies change in stool character Musc Denies abnormal gait, Denies muscle weakness, Denies numbness, Denies radiating pain into limb and Denies tingling Neuro Denies abnormal gait, Denies dizziness, Denies numbness and Denies tingling Endo Denies fatigue and Denies palpitations Physical Exam Vital Signs: Last Vital Signs Pulse 61 05/22/24 08:49 BP 160/74 H 05/22/24 08:49 BMI result Body Mass Index 25.7 Const General: comfortable and no acute distress Orientation/consciousness: patient oriented x3 HEENT Other: Unremarkable Head: Yes normal to inspection Neck Neck: Yes normal visual inspection Chest Chest palpation & inspection: normal inspection of the chest Resp Auscultation: clear to auscultation bilaterally Cardio Palpation: normal PMI Heart sounds: S1 normal heart sound present, S2 normal heart sound present, no gallops, no murmurs and no rubs GI Palpation (GI): Soft to palpation Back/Spine/Pelvis Other: unremarkable Skin General skin exam: no rashes or lesions noted Neuro General: patient oriented x3 Extrem General: Yes normal to inspection Psych Mental Status: mental status grossly normal Office Procedures EKG Details: EKG with underlying atrial fibrillation at 61/Min; minimal criteria for LVH; otherwise unremarkable. [id number], Complete Assessment & Plan Assessment & Plan (1) Persistent atrial fibrillation: Code(s): I48.19 - Other persistent atrial fibrillation Category: Medical Plan: Permanent atrial fibrillation. Echocardiogram severe biatrial enlargement. Not suitable for rhythm control. Continue diltiazem and Eliquis. (2) Chronic right heart failure: Code(s): I50.812 - Chronic right heart failure Category: Medical Plan: Echocardiogram shows severely increased right ventricular size with preserved function. Seems stable. (3) Asymmetric septal hypertrophy: Code(s): I42.2 - Other hypertrophic cardiomyopathy Category: Medical Plan: Echocardiogram shows severe septal hypertrophy which could be a consequence of longstanding poorly controlled hypertension. (4) Valvular heart disease: Code(s): I38 - Endocarditis, valve unspecified Category: Medical Plan: Echocardiogram with mild mitral regurgitation, mild aortic regurgitation [id number] tricuspid regurgitation. Likely all consequence of long- standing atrial fibrillation as well as hypertension. Not hemodynamically significant this time. (5) Hypertension: Code(s): I10 - Essential (primary) hypertension Category: Medical Qualifiers: Hypertension type: primary hypertension Qualified Code(s): I10 - Es sential (primary) hypertension Plan: Advised him to double up on the lisinopril/hydrochlorothiazide for a week or so. He states previously when meds were changed he got dizzy. If he does tolerate the above medication change, we can send a new script for the higher dose. In that case, will need some labs as well. If he does not tolerate it, then probably different medication like hydralazine or spironolactone. (6) Ascending aorta dilatation: Code(s): I77.810 - Thoracic aortic ectasia Category: Medical Plan: Ascending aortic size 4.2 cm. To be followed. This warrants aggressive blood pressure management. (7) Sleep apnea: Code(s): G47.30 - Sleep apnea, unspecified Category: Medical Plan: Discussed today. Not regularly using CPAP. Ideally should be. Orders: Orders CA echo transthoracic complete 4 Months I50.812 - Chronic right heart failure Coding Level of Care Code Est Pt Level 4 (54715) Diagnoses Persistent atrial fibrillation I48.19 Chronic right heart failure I50.812 Asymmetric septal hypertrophy I42.2 Valvular heart disease I38 Primary hypertension I10 Hypertension type: primary hypertension Ascending aorta dilatation I77.810 Sleep apnea G47.30 CPT Codes EKG - CPT: 95098-[id number], Complete ([id number])
== END 2024-05-22 09:14 | disposition home or self-care (01) ==
PROVIDERS: PCP Internal Medicine; Visit Provider Internal Medicine
DX: I48.19 Other persistent atrial fibrillation (principal); I50.812 Chronic right heart failure; I42.2 Other hypertrophic cardiomyopathy; I38 Endocarditis, valve unspecified; I10 Essential (primary) hypertension; I77.810 Thoracic aortic ectasia; G47.30 Sleep apnea, unspecified
CPT/HCPCS: 93010; 99214

== ENCOUNTER → 2024-05-22 08:44 | Outpatient (BNVA) | payer MEDICARE, SELFPAY | PROVIDERS: PCP Internal Medicine; Visit Provider Internal Medicine | DX: I48.19 Other persistent atrial fibrillation (principal); I11.0 Hypertensive heart disease with heart failure; I50.812 Chronic right heart failure; I42.2 Other hypertrophic cardiomyopathy; I38 Endocarditis, valve unspecified; I77.810 Thoracic aortic ectasia; G47.30 Sleep apnea, unspecified | CPT/HCPCS: 93005; 99212 ==

== ENCOUNTER 2024-06-05 09:23 | Outpatient (REF) | payer MEDICARE, SELFPAY ==
[2024-06-05 10:55] LABS: Anion Gap 12 (12-20); Blood Urea Nitrogen 22 mg/dL (9-16); Calcium 9.3 mg/dL (8.4-10.2); Carbon Dioxide 29 mmol/L (22-29); Chloride 103 mmol/L (96-108); Estimated Glomerular Filt Rate > 60; Glucose Random 173 mg/dL (60-115); Potassium 3.6 mmol/L (3.3-5.1); Sodium 140 mmol/L (135-145)
== END 2024-06-05 09:24 | disposition home or self-care (01) ==
LOC: HO.LAB 09:23
PROVIDERS: Absent Provider Nurse Practitioner Family; PCP Internal Medicine; Visit Provider Internal Medicine
DX: I10 Essential (primary) hypertension (principal)
CPT/HCPCS: 36415; 80048

== ENCOUNTER → 2024-09-10 08:52 | Outpatient (REF) | payer MEDICARE, SELFPAY ==
--- NOTE | 2024-09-10 08:55 | CA_ITS ---
Transthoracic Echocardiogram Patient (Last, First, Middle): Ty Duran, Gender: Male Date of : 1945 Age: 78 Procedure Date: 09/10/2024 Procedure Type: Transthoracic Echocardiogram Location: OP Height: 185.42 cm Weight: 88.91 kg BSA: 2.13 m2 Heart Rate: bpm BP: 160 / 76 mmHg Pool Servicer: IVA Referring MD: John Castro MD Symptoms: I50.812 - Chronic right heart failure Study Quality: Adequate ECG Rhythm: Atrial Fibrillation Conclusions: - The left ventricular systolic function is normal. The calculated ejection fraction is 59% by biplane method - There is moderately increased left ventricular wall thickness. - Moderately increased right ventricular cavity size. - Severe biatrial enlargement. - There is moderate tricuspid valve regurgitation. - Mild to moderate pulmonary hypertension is present. - There is mild dilatation of the ascending aorta measuring 4.10 cm. Findings Left Ventricle Normal left ventricular cavity size. There is moderately increased left ventricular wall thickness. The left ventricular systolic function is normal. The calculated ejection fraction is 59% by biplane method. There is no evidence of regional wall motion abnormalities. Diastolic function is indeterminate on the basis of available data. Right Ventricle Moderately increased right ventricular cavity size. There is normal right ventricular systolic function. Atria Severe biatrial enlargement. Aortic Valve There is a normal trileaflet aortic valve. There is no aortic valve stenosis. There is mild aortic valve regurgitation. Mitral Valve The mitral valve appears normal. There is mild mitral valve regurgitation. There is no mitral valve stenosis. Pulmonic Valve The pulmonic valve is likely normal. Tricuspid Valve There is moderate tricuspid valve regurgitation. Mild to moderate pulmonary hypertension is present. Great Vessels There is mild dilatation of the ascending aorta measuring 4.10 cm. Venous The inferior vena cava is dilated and collapses less than 50% with inspiration. Pericardium/Pleural There is no evidence of pericardial effusion. Prior Study Comparison No significant change compared to prior study dated: 03/09/2023. Measurements 2D Linear Measurements IVSd: 1.41 0.6-0.9/0.6-1.0 cm LVIDd: 5.71 3.9-5.3/4.2-5.9 cm LVIDd Index: 2.68 2.4-3.2/2.2-3.1 cm/m2 LVIDs: 4.10 2.0-3.6 cm LVPWd: 1.33 0.7-1.1 cm LA Diam: 5.90 2.7-3.8/3.0-4.0 cm LAIDs Index: 2.77 1.5-2.3 cm/m2 LV Mass: 433.87 67-162/88-224 g LV Mass Index: 203.69 43-95/49-115 g/m2 LVOT Diam: 2.20 3.0+(-)1.3 cm 2D Systolic Function EF 4C: 57.80 >55% EF 2C: 62.70 >55% EF BiP: 58.60 >55% Mitral Valve MV Pk E: 1.03 MV Decel Time: 218.00 E'Lateral: 10.50 E'Medial: 7.16 E/E' Med: 14.40 E/E' Lat: 9.80 PHT: 64.00 MVA PHT: 3.44 Decel [place]: 4.78 Aortic Valve AoV Pk Luis Alberto: 2.06 AoV Mn Luis Alberto: 1.35 AoV VTI: 0.41 AoV Pk Grad: 17.00 Aov Mn Grad: 9.00 KARINA Cont.VTI: 2.09 AI Pk Luis Alberto: 4.52 AI [place]: 2.06 LVOT LVOT Pk Luis Alberto: 1.20 LVOT Mn Luis [place]to: 0.73 LVOT VTI: 0.22 LVOT Pk Grad: 6.00 LVOT Mn Grad: 2.00 LVOT Diam: 2.20 LVOT Area: 3.80 Diastolic Function MV Pk E: 1.03 E'Medial: 7.16 E/E' Med: 14.40 E' Laterial: 10.50 E/E' Lat: 9.80 Right Ventricle TAPSE (mm): 30.90 TVS' Luis Alberto: 16.20 Tricuspid Valve TR Pk Luis Alberto: 3.26 TR Pk Grad: 43.00 RA Press: 15.00 RVSP: 58.00 Great Vessels Aorta Sinus of Valsalva: 3.97 2.0-3.[address] [place]: 3.35 1.7-3.4 cm Ao Asc: 4.10 2.1-3.4 cm Updated in Other Vendor System with Status of Final John Castro MD electronically signed on 09/11/2024 3:42:38 PM with status of Final
== END ==
LOC: HO.CARD 08:52
PROVIDERS: PCP Internal Medicine; Visit Provider Internal Medicine
DX: I50.812 Chronic right heart failure (principal)
CPT/HCPCS: 93306

== ENCOUNTER → 2024-09-10 08:55 | Outpatient (BNV) | payer MEDICARE, SELFPAY | PROVIDERS: PCP Internal Medicine; Visit Provider Internal Medicine | DX: I50.812 Chronic right heart failure (principal) | CPT/HCPCS: 93306 ==

== ENCOUNTER 2024-09-19 13:22 | Outpatient (AMB) | payer MEDICARE, SELFPAY ==
[2024-09-19 13:24] VITALS: BP 150/70; PULSE 70; BMI 27.0
--- NOTE | 2024-09-19 13:24 | A.OFFVIS_ITS ---
Vital Signs 09/19/24 13:24 Height 6 ft 1 in Weight 205 lb 0.478 oz BMI 27.0 BP 150/70 H Blood Pressure Location Lt brachial Position Sitting Pulse 70 Pulse Source Pulse Oximeter Intake Visit Reasons: F/U s/p echo Intake Note: f/up echo Interior Design Principal Required: No Accompanied by: Self / Same As Patient Allergies No Known Allergies Allergy (Mild, Verified 01/12/24 08:19) NOT APPLICABLE Medication List - Last Reconciled 09/19/24 by Lopez Villela NP apixaban (Eliquis) 5 mg PO BID diltiazem HCl CD 300 mg PO DAILY lisinopril-hydrochlorothiazide 20-12.5 mg 1 tab PO DAILY multivitamin 1 tab PO DAILY HPI Comments Details: This is a 79-year-old male presenting for a follow-up appointment. He has a history of chronic atrial fibrillation for more than 10 years now and is currently on diltiazem and Eliquis for this. The patient was previously seen in the office due to an abnormal echocardiogram in poorly controlled hypertension. Reports that his blood pressures can be elevated due to anxiety at home as well. Otherwise, he denies any exertional chest pain, shortness of breath, palpitations, dizziness, presyncope, syncope, orthopnea, PND, or leg edema. [facility] Medical History Persistent atrial fibrillation Chronic ITP (idiopathic thrombocytopenic purpura) History of pancytopenia Surgical History No pertinent past surgical history Family History Mother No problems noted. Father No problems noted. Social History Household Members: Spouse Housing: House Are you a primary manager career to a significant other at home: No Do you presently have visiting nurse or other home services: No Alcohol intake: never Patient Tobacco Use Status: Never used Tobacco service: No Current occupational status: retired Review of Systems Const Denies chills, Denies fatigue, Denies fever(s), Denies frequent falls, Denies weakness, Denies weight gain and Denies weight loss ENT Denies dizziness Card Denies chest pain, Denies leg edema, Denies lightheadedness, Denies palpitations, Denies dyspnea and Denies dyspnea on exertion Resp Denies cough, Denies dyspnea and Denies dyspnea on exertion GI Denies hematochezia Musc Denies abnormal gait, Denies muscle weakness, Denies numbness, Denies radiating pain into limb and Denies tingling Neuro Denies abnormal gait, Denies dizziness, Denies frequent falls, Denies numbness, Denies tingling and Denies weakness Endo Denies fatigue and Denies palpitations Physical Exam Vital Signs: Last Vital Signs Pulse 70 09/19/24 13:24 BP 150/70 H 09/19/24 13:24 BMI result Body Mass Index 27.0 Const General: cooperative, healthy appearing, comfortable and no acute distress Orientation/consciousness: patient oriented x3 HEENT Head: Yes normal to inspection Neck Neck: Yes normal visual inspection, Yes trachea midline and Yes supple Chest Chest palpation & inspection: normal inspection of the chest Resp Effort & Inspection: normal respiratory effort Auscultation: clear to auscultation bilaterally, no crackles, no rales, no rhonchi and no wheezes Cardio Jugular venous distension: no JVD Palpation: normal PMI Rate: regular rate Rhythm: regular rhythm Heart sounds: S1 normal heart sound present, S2 normal heart sound present, no click, no gallops, no murmurs and no rubs Peripheral pulses: Peripheral pulses 2+ throughout GI Inspection: Yes normal to inspection Palpation (GI): Soft to palpation Auscultation: normal bowel sounds Skin General skin exam: no rashes or lesions noted Neuro General: patient oriented x3 Extrem General: Yes normal to inspection, No no pedal edema and No calf tenderness Psych Appearance: grossly normal Mental Status: mental status grossly normal Speech and movement: Normal speech and movement present Assessment & Plan Assessment & Plan (1) Persistent atrial fibrillation: Code(s): I48.19 - Other persistent atrial fibrillation Category: Medical Plan: Permanent AFib. Continue diltiazem and Eliquis. (2) Hypertension: Code(s): I10 - Essential (primary) hypertension Category: Medical Qualifiers: Hypertension type: primary hypertension Qualified Code(s): I10 - Essential (primary) hypertension Plan: Patient's blood pressure today is elevated. At the previous visit, patient was advised to increase the dose of his lisinopril/hydrochlorothiazide, but this adjustment was never made by the patient. Patient has now agreed to double the dose for the time being. We will follow up in 1 month with a nurse visit for blood pressure check. If the patient experiences any intolerance to the increased dose in the interim, he is instructed to call us. Advised to maintain a log of his blood pressure readings and to bring them during his visit. (3) Chronic right heart failure: Code(s): I50.812 - Chronic right heart failure Category: Medical Plan: 09/10/2024- echo showed a normal EF at 59%, moderately increased left ventricular wall thickness, moderately increased right ventricular cavity size, severe biatrial enlargement, moderate tricuspid valve regurgitation, [id number] pulmonary hypertension, mild dilation of the ascending aorta measuring 4.1 cm, dilated inferior vena cava the collapses less than 50% with inspiration. We will repeat echo in 6 months to monitor for changes. (4) Ascending aorta dilatation: Code(s): I77.810 - Thoracic aortic ectasia Category: Medical Plan: Emphasized the importance of controlling his blood pressure, particularly in the light of the size of the ascending aorta, measuring 4.10 cm. (5) Sleep apnea: Code(s): G47.30 - Sleep apnea, unspecified Category: Medical Plan: Not on CPAP. The importance of CPAP compliance is explained in detail, emphasizing its benefits for managing sleep apnea and improving overall cardiovascular health. Patient declines to use it. This note was generated using voice recognition software. While every effort has been made to ensure accuracy and proper mate fishing vessel, there may be occasional errors that could affect the content or meaning of the described symptoms. Orders: Orders CA echo transthoracic complete 6 Months I77.810 - Thoracic aortic ectasia Basic Metabolic Panel 1 Month I10 - Essential (primary) hypertension Medications: Changed From lisinopril-hydrochlorothiazide 20-12.5 mg 1 tab PO DAILY 90 tabs 3RF To lisinopril-hydrochlorothiazide 20-12.5 mg 2 tabs PO DAILY 90 tabs 3RF Coding Level of Care Code Est Pt Level 4 (65906) Diagnoses Persistent atrial fibrillation I48.19 Primary hypertension I10 Hypertension type: primary hypertension Chronic right heart failure I50.812 Ascending aorta dilatation I77.810 Sleep apnea G47.30 Time Spent (min) 31 Comment Time spent in reviewing the chart, test results, assessment, counseling and documentation.
== END 2024-09-19 13:53 | disposition home or self-care (01) ==
PROVIDERS: PCP Internal Medicine
DX: I48.19 Other persistent atrial fibrillation (principal); I10 Essential (primary) hypertension; I50.812 Chronic right heart failure; I77.810 Thoracic aortic ectasia; G47.30 Sleep apnea, unspecified
CPT/HCPCS: 99214

== ENCOUNTER → 2024-09-19 13:22 | Outpatient (BNVA) | payer MEDICARE, SELFPAY | PROVIDERS: PCP Internal Medicine | DX: I48.19 Other persistent atrial fibrillation (principal); I11.0 Hypertensive heart disease with heart failure; I50.812 Chronic right heart failure; I77.810 Thoracic aortic ectasia; G47.30 Sleep apnea, unspecified | CPT/HCPCS: 99212 ==

== ENCOUNTER → 2024-10-17 10:04 | Outpatient (BNVA) | payer MEDICARE, SELFPAY | PROVIDERS: PCP Internal Medicine ==

== ENCOUNTER 2024-11-07 11:57 | Emergency (ER) | payer MEDICARE, SELFPAY ==
--- NOTE | ~2024-11-07 | US_ITS ---
CLINICAL HISTORY: RUQ pain, abn LFTs Limited abdominal ultrasound Comparison: None Findings: The liver is normal in size, measuring cm in length. Normal versus increased echogenicity with a cyst measuring 6.1 x 4.3 x 5.7 cm. Normal hepatopetal flow is seen within the portal vein. The common bile duct is dilated, measuring 1.7 cm. Cholelithiasis. No wall thickening or pericholecystic fluid. Positive sonographic Rodriguez sign. The right kidney is increase in echogenicity and size, measuring 9.6 cm in length. There is a hypoechoic lesion of the head of the pancreas measuring 6.0 x 3.3 x 4.8 cm. Impression: Marked dilation of the common bile duct which appears to be obstructed distally due to a hypoechoic lesion in the head of the pancreas measuring up to 6.0 cm. This is highly concerning for malignancy. Further evaluation with cross-sectional imaging, preferably pancreatic mass protocol CT or MR, is recommended. Cholelithiasis with a positive sonographic Rodriguez's sign is sensitive for acute cholecystitis. No gallbladder wall thickening or pericholecystic fluid. Increased echogenicity of the right kidney may indicate medical renal disease. Questionable hepatic steatosis. This document has been electronically signed by: Nancy Chilel MD on 11/07/2024 18:47:42
--- NOTE | ~2024-11-07 | MR_ITS ---
CLINICAL HISTORY: Abn LFTs, poss panc mass on US, dilated CBD MR abdomen with and without contrast Comparison: US - US ABDOMEN LIMITED - 11/07/24 17:49 EST Findings: No signal abnormality in the lung bases. Cardiomegaly with marked enlargement of the right atrium. No gallbladder distention. There is cholelithiasis. No gallbladder wall thickening or pericholecystic fluid. Severe intrahepatic and extrahepatic biliary ductal dilatation. The common bile duct measures up to 1.9 cm. There is an abrupt cutoff at a mass in the head of the pancreas. No choledocholithiasis. Liver cysts, the largest measuring 6.0 cm. There is a mass in the head of the pancreas measuring 4.5 x 4.2 x 4.7 cm. There is upstream ductal dilatation, measuring up to 0.8 cm. There is upstream parenchymal atrophy. The mass is hypointense on T2 weighted images and mildly hyperintense on T1 weighted images. There is enhancement on the postcontrast images. The mass abuts the superior mesenteric artery, however does not encase it. The celiac artery is not involved. The mass narrows the superior mesenteric vein near the confluence with the portal vein with near circumferential encasement (series 19, image 50 and series 16 images 48 through 61). No identified hepatic metastatic disease Right renal subcentimeter cysts. The other solid organs are unremarkable. No bowel wall thickening or dilation. No aneurysm. No identified lymphadenopathy. No ascites. Bone marrow edema and enhancement is centered upon the endplates and favored to be degenerative/Modic type 1 change. Impression: Pancreatic adenocarcinoma in the head of the pancreas measuring up to 4.7 cm. Nonemergent workup including surgical referral is recommended. This document has been electronically signed by: Nancy Chilel MD on 11/07/2024 21:23:18
[2024-11-07 12:17] VITALS: BP 164/96; PULSE 77; RESP 18; TEMP 36.2; O2SAT 96; BMI 25.4
--- NOTE | 2024-11-07 12:19 | ED.MALEGU ---
HPI - Male Genitourinary General Chief complaint: General Medical Stated complaint: Blood In Urine Time Seen by Provider: 11/07/24 17:25 History of Present Illness ED Provider: Yokasta OWEN Narrative: The patient is a 79-year-old male with a history of atrial fibrillation on apixaban who says that for the last week he has noticed that his urine has been darker than usual. He also feels that he has had upper abdominal pains intermittently during the last week that are more pronounced when he eats. No fever, sweats, chills. No nausea or vomiting. No diarrhea. No painful urination. No urinary frequency or urgency. Related Data Home Medications ?Medication ?Instructions ?Recorded ?Confirmed multivitamin 1 tab PO DAILY 06/24/20 09/19/24 diltiazem HCl 300 mg 300 mg PO DAILY 08/04/23 09/19/24 capsule,extended release 24 hr Previous Rx's ?Medication ?Instructions ?Recorded apixaban 5 mg tablet (Eliquis) 5 mg PO BID #60 tabs 05/22/24 lisinopril 20 2 tab PO DAILY 90 days #180 tabs 10/23/24 mg-hydrochlorothiazide 12.5 mg tablet Allergies Allergy/AdvReac Type Severity Reaction Status Date / Time No Known Allergies Allergy Mild NOT Verified 11/07/24 12:19 APPLICABLE Review of Systems Review of Systems: Yes all other systems are reviewed and are negative [facility] Past Medical History Medical History Persistent atrial fibrillation Chronic ITP (idiopathic thrombocytopenic purpura) History of pancytopenia Surgical History No pertinent past surgical history Family History Family History Mother No problems noted. Father No problems noted. Social History Social History Household Members: Spouse Housing: House Are you a primary medical care manager to a significant other at home: No Do you presently have visiting nurse or other home services: No Alcohol intake: never Patient Tobacco Use Status: Never used Tobacco service: No Current occupational status: retired Physical Exam Vital Signs: Vital Signs: Last Vital Signs Temp 97.7 F 11/07/24 22:12 Pulse 83 11/07/24 22:12 Resp 17 11/07/24 22:12 BP 165/99 H 11/07/24 22:12 Pulse Ox 97 11/07/24 22:12 O2 Del Method Room Air 11/07/24 22:12 BMI result Body Mass Index 25.4 Const: Other: The patient is a slim 79-year-old man who was awake and alert. He does not appear in obvious distress Orientation/consciousness: patient oriented x3 HEENT: Other: Face is symmetrical. Mucous membranes moist Eyes: General: appearance normal, both eyes and all related structures Sclerae: sclerae normal Neck: Neck: Yes full ROM, Yes no lymphadenopathy and Yes no JVD Resp: Effort & Inspection: normal respiratory effort Auscultation: clear to auscultation bilaterally Cardio: Other: The patient has an irregular rate and rhythm with no murmur. GI: Other: The abdomen is flat and soft. There may be some mild right upper quadrant tenderness. No definite rebound or guarding. : General: Yes no CVA tenderness Back/Spine/Pelvis: Back: no CVA tenderness Skin: General skin exam: no rashes or lesions noted Neuro: General: patient oriented x3, gait normal, moves all extremities, no focal motor deficits and CN's II-XI intact bilaterally Extrem: General: Yes normal to inspection and Yes no calf tenderness Course Course Course Narrative: This is a Rapid Medical Exam performed in triage by Tomeka Tejeda PA-C. Full HPI, ROS and PE to be performed by primary ED provider. 79 yo M w/PMHx A.fib on Eliquis, ITP, pancytopenia, presenting to the ED c/o gross hematuria x1 week with lower abdominal discomfort. Denies clots. Reports lightheadedness/fatigue. Denies flank pain, nausea/vomiting PE: Abdomen is soft and nontender, no CVAT Plan: Labs, UA Medications Administered Discontinued Medications Generic Name Dose Route Start Last Admin Trade Name Freq PRN Reason Stop Dose Admin Gadobutrol 10 ml 11/07/24 20:46 11/07/24 20:47 Gadobutrol 10 Ml Vial IVPUSH 11/07/24 20:47 9 ml ONCE ONE Administration Medical Decision Making Medical Decision Making MDM Narrative: The patient is a 79-year-old male who presents with dark urine and intermittent right upper quadrant abdominal pain that is worse with eating. His urinalysis is unremarkable but his LFTs show elevated bilirubin. I suspect that his dark urine is likely secondary to urobilinogen secondary to his jaundice. Ultrasound of his right upper quadrant was done that showed dilation of the common bile duct head of the pancreas measuring up to 6 cm. This was felt to be highly concerning for malignancy. There was cholelithiasis without gallbladder wall thickening or pericholecystic fluid. MR imaging of the pancreas was recommended. I discussed the case with Dr. Tiwari of Gastroenterology who recommended an MRI with and without contrast of the abdomen. The MRI was read as showing a pancreatic mass, possibly an adenocarcinoma, in the head of the pancreas measuring up to 4.7 cm. This although there was cholelithiasis. There was no gallbladder wall thickening or pericholecystic fluid. The results of the MRI were also discussed with Dr. Tiwari. Since the patient does not appear acutely ill or toxic we felt that the patient has next steps in evaluation for this problem could probably be done as an outpatient. Dr. Tiwari was given the patient's contact information. The plan will be for an outpatient endoscopic ultrasound and for stenting of the CBD. The patient was advised that if at any point he develops a fever or significantly worsening symptoms of any other kind he should return to the emergency room Lab Data 11/07/24 14:41 11/07/24 14:41 Labs: Lab Results 11/07/24 Range/Units 14:41 WBC 8.5 (4.8-10.8) X10*3/uL RBC 4.03 L (4.60-5.80) X10*6/uL Hgb 13.4 L (14.0-18.0) g/dl Hct 38.1 L (42.0-52.0) % MCV 94.5 (80.0-98.0) fL MCH 33.3 H (27.0-33.0) pg MCHC 35.2 (31.0-36.0) g/dl RDW 14.8 (11.0-16.0) % Plt Count 167 (160-400) X10*3/uL MPV 10.2 (9.4-12.4) fL Immature Gran % (Auto) 0.1 (0.0-0.4) % Neut % (Auto) 44.1 L (45-73) % Lymph % (Auto) 50.7 H (20-40) % [place] % (Auto) 4.7 (2-11) % Eos % (Auto) 0.2 (0-4) % Baso % (Auto) 0.2 (0-2) % Lymph # (Auto) 4.3 (1.2-4.9) X10*3/uL [place] # (Auto) 0.4 (0.1-1.2) X10*3/uL Eos # (Auto) 0.0 (0.0-0.4) X10*3/uL Baso # (Auto) 0.0 (0.0-0.2) X10*3/uL Abs Immat Gran (auto) 0.01 (0.00-0.03) X10*3/uL Absolute Neuts (auto) 3.7 (2.0-8.3) x10*3/uL Absolute Nucleated RBC 0.000 (0.0-0.012) X10*3/uL Nucleated RBC % (auto) 0.0 (0.0-0.2) /100WBC PT 13.4 H (10.9-12.4) SEC INR 1.2 H (0.9-1.1) Sodium 134 L (135-145) mmol/L Potassium 3.4 (3.3-5.1) mmol/L Chloride 96 (96-108) mmol/L Carbon Dioxide 27 (22-29) mmol/L Anion Gap 14 (12-20) BUN 15 (9-16) mg/dL Creatinine 0.69 (0.5-1.4) mg/dL Estim Creat Clear Calc 98.1 Estimated GFR > 60 Random Glucose 214 H (60-115) mg/dL Calcium 9.5 (8.4-10.2) mg/dL Magnesium 2.0 (1.6-2.6) mg/dL Total Bilirubin 8.5 H (0.0-1.0) mg/dL Direct Bilirubin 5.3 H (0.0-0.5) mg/dL AST 171 H (5-37) U/L ALT 398 H (0-40) U/L Alkaline Phosphatase 174 H (39-117) U/L C-Reactive Protein 0.56 H (< or = 0.50) mg/dL Total Protein 7.6 (6.5-8.0) g/dL Albumin 3.9 (3.5-5.0) g/dL Lipase 168 H (8-78) U/L Urine Color Dark Yellow Urine Appearance Clear Urine pH 7.5 (5.0-9.0) Ur Specific [place] 1.020 (1.005-1.025) Urine Protein Trace (Neg-Trace) mg/dL Urine Glucose (UA) >=1000 H (Negative) mg/dL Urine Ketones Negative (Negative) mg/dL Urine Blood Negative (Negative) Urine Nitrite Negative (Negative) Ur Leukocyte Esterase Trace H (Negative) Urine RBC 0-2 (0-2) /HPF Urine WBC 0-5 (0-5) /HPF Ur Squamous Epith Cells 0-2 (0-2) /HPF Urine Bacteria None Seen (None Seen) Hyaline Casts 0-2 (0-2) /LPF Discharge Plan Discharge Clinical Impression: Pancreatic mass, Abnormal liver function tests Patient Disposition: Home, Self-Care Additional Instructions: Your testing today shows that you have a mass in your pancreas which is affecting the drainage of your gallbladder. This is causing you to have elevated bilirubin which is making your urine dark. This is also the reason you has been having pains when you eat. Eat simple, non fatty foods. Please contact the [place] office tomorrow. I spoke with Dr. Tiwari. They should be making arrangements for next steps as an outpatient. This will likely include arrangements for an endoscopic ultrasound and a stent of your bile duct. If at any point you are significantly worse please return to the emergency department. Prescriptions: No Action Eliquis 5 mg tablet 5 mg PO BID Qty: 60 11RF lisinopril-hydrochlorothiazide 20-12.5 mg tablet 2 tab PO DAILY 90 Days Qty: 180 1RF multivitamin [One A Day Vitamin] Tablet 1 tab PO DAILY diltiazem HCl 300 mg capsule,extended release 24hr 300 mg PO DAILY Referrals: [facility] [Provider Group] (Pancreatic tumor with jaundice) Interventions: ED Discharge Assessment Last Done: 11/07/24 22:12 Discharge Date/Time: 11/07/24 22:21 Print Language: Hong Konger
[2024-11-07 14:46] LABS: Basophils Percent Auto 0.2 % (0-2); Eosinophils Percent Auto 0.2 % (0-4); Hematocrit 38.1 % (42.0-52.0); Hemoglobin 13.4 g/dl (14.0-18.0); Imm Gran Abs Auto 0.01 X10*3/uL (0.00-0.03); Imm Gran Pct Auto 0.1 % (0.0-0.4); Lymphocytes Absolute Auto 4.3 X10*3/uL (1.2-4.9); Lymphocytes Percent Auto 50.7 % (20-40); MANUAL DIFF FLAG NO; Mean Corpuscular HGB Conc 35.2 g/dl (31.0-36.0); Mean Corpuscular Hemoglobin 33.3 pg (27.0-33.0); Mean Corpuscular Volume 94.5 fL (80.0-98.0); Mean Platelet Volume 10.2 fL (9.4-12.4); Monocytes Absolute Auto 0.4 X10*3/uL (0.1-1.2); Monocytes Percent Auto 4.7 % (2-11); Neutrophils Absolute Auto 3.7 x10*3/uL (2.0-8.3); Neutrophils Percent Auto 44.1 % (45-73); Platelet Count 167 X10*3/uL (160-400); Red Blood Count 4.03 X10*6/uL (4.60-5.80); Red Cell Distribution Width 14.8 % (11.0-16.0); White Blood Count 8.5 X10*3/uL (4.8-10.8)
[2024-11-07 14:48] LABS: Appearance Urine Clear; Color Urine Dark Yellow; Glucose Urine UA >=1000 mg/dL (Negative); Leukocyte Esterase Urine Trace (Negative); Nitrite Urine Negative (Negative); PH 7.5 (5.0-9.0); UMIC TRIGGER UACC YES; Urine Blood Negative (Negative); Urine Ketones Negative (Negative); Urine Protein Trace mg/dL (Neg-Trace)
[2024-11-07 14:50] LABS: Bacteria Urine None Seen (None Seen); Hyaline Casts Urine 0-2 /LPF (0-2); RBC Urine 0-2 /HPF (0-2); Squamous Epithelial Cell Urine 0-2 /HPF (0-2); WBC Urine 0-5 /HPF (0-5)
[2024-11-07 14:54] LABS: INTERNATIONAL NORM RATIO 1.2 (0.9-1.1); Prothrombin Time 13.4 SEC (10.9-12.4)
[2024-11-07 15:26] LABS: Alanine Aminotransferase 398 U/L (0-40); Albumin Level 3.9 g/dL (3.5-5.0); Anion Gap 14 (12-20); Aspartate Amino Transferase 171 U/L (5-37); Bilirubin Direct 5.3 mg/dL (0.0-0.5); Bilirubin Total 8.5 mg/dL (0.0-1.0); Blood Urea Nitrogen 15 mg/dL (9-16); Calcium 9.5 mg/dL (8.4-10.2); Carbon Dioxide 27 mmol/L (22-29); Chloride 96 mmol/L (96-108); Creatinine Clr Calc Pharmacy 98.1; Estimated Glomerular Filt Rate > 60; Glucose Random 214 mg/dL (60-115); Lipase 168 U/L (8-78); Potassium 3.4 mmol/L (3.3-5.1); Sodium 134 mmol/L (135-145); Total Protein 7.6 g/dL (6.5-8.0)
[2024-11-07 16:14] LABS: Alkaline Phosphatase 174 U/L (39-117)
[2024-11-07 17:31] VITALS: BP 170/97; PULSE 73; RESP 16; TEMP 37.1; O2SAT 98
--- NOTE | 2024-11-07 17:42 | ECG_ITS ---
Test Reason : abd pain Blood Pressure : */* mmHG Vent. Rate : 57 BPM Atrial Rate : * BPM P-R Int : * ms QRS Dur : 116 ms QT Int : 458 ms P-R-T Axes : * 108 -14 degrees QTcB Int : 445 ms Atrial fibrillation with slow ventricular response with premature ventricular or aberrantly conducted complexes Low voltage QRS Lateral infarct , age undetermined Abnormal ECG When compared with ECG of 25-Oct-2007 06:40, MANUAL COMPARISON REQUIRED PREVIOUS ECG IS INCOMPATIBLE Referred By: Mike Templeton Electronically Signed By: VERITO HILTON MD
[2024-11-07 18:18] LABS: C Reactive Protein 0.56 mg/dL (< or = 0.50)
[2024-11-07 19:03] VITALS: BP 159/93; PULSE 58; RESP 16; O2SAT 96
--- OUTSIDE RECORDS SUMMARY | 2024-11-07 19:32 | XMS_ITS | Clinical Summary ---
Author Organization [employer] Address [address] [place] [address] Care Team Providers Care Console Manager Name Role Phone Scottie Leonard MD Primary Care Provider Allergies No known active allergies Medications Elastic Bandages & Supports (Medical Compression Stockings) miscIndications:E meet, lower extremity 15-20 mm /Hg. Knee high. Dx Edema lower limbs. 2 each 3 Active lisinopril-hydroC HLOROthiazide 10-12.5 MG tabletIndications :Primary hypertension Take 1 tablet by mouth in the morning. 90 tablet 3 4 11/23/19 25 Active warfarin (Jantoven) 5 MG tabletIndications :Longstanding persistent atrial fibrillation (CMS/HCC) TAKE ONE TABLET BY MOUTH EVERY DAY OR DIRECTED BY THE [facility]MADIN CLINIC 30 tablet 2 4 Active dilTIAZem CD (Cardizem CD) 300 MG 24 hr capsuleIndication s:Longstanding persistent atrial fibrillation (CMS/HCC) TAKE ONE CAPSULE BY MOUTH EVERY DAY. 30 capsule 11 5 Active Active Problems Problem Noted Date Diagnosed Date Idiopathic thrombocytopenic purpura 05/06/2020 Monoclonal gammopathy of unknown significance (M LAODNNA) 05/06/2020 Atrial fibrillation 10/17/2012 Hypertension 10/17/2012 Encounters Date Type Department Care Team Description 09/23/2024 Refill [facility] MEDICINE [address] [place] [address] Scottie Leonard MD Longstanding persistent atrial fibrillation (CMS/HCC) from Last 3 Months Social History Tobacco Use Types Packs/Day Years Used Date Smoking Tobacco: Never Smokeless Tobacco: Never Tobacco Cessation:Counseling Given: No Alcohol Use Standard Drinks/Week Comments Never 0 (1 standard drink = 0.6 oz pur e alcohol) Sex and Gender Information Value Date Recorded Sex Assigned at Male 07/05/2022 10:21 AM EDT Legal Sex Male 10:21 AM EDT Gender Identity Male 07/05/2022 10:21 AM EDT Sexual Orientation Straight 07/05/2022 10 :21 AM EDT Last Filed Vital Signs Vital Sign Reading Time Taken Comments Blood Pressure 180/82 11/22/2023 3:21 PM EDT Pulse 74 11/22/2023 3:21 PM EDT Temperature 36.8 ??C (98.2 ??F) 11/22/2023 3:21 PM ED T Respiratory Rate 18 11/22/2023 3:21 PM EDT Oxygen Saturation 98% 11/22/2023 3:21 PM EDT Inhaled Oxygen Concentration - - Weight 91.5 kg (201 lb 12.8 oz) 11/22/2023 3:21 PM EDT Height 183 cm (6' 0.05 ) 11/22/2023 3:21 PM EDT Body Mass Index 27.33 11/22/2023 3:21 PM EDT Plan of Treatment Health Maintenance Due Date Last Done Comments Depression Screening 1945 Lipid Panel 1945 SDOH Screening 1945 Alcohol/Substance Use Screening 1957 Hepatitis C Screening 1963 Zoster Vaccines (2 of 3) 07/09/2013 05/14/2013 Pneumococcal Vaccine: 50+ Years (2 of 2 - PPSV23) 06/26/2015 06/26/2014 RSV Patients and Patients Aged 60 years or older (1 - 1-dose 75+ series) 2020 COVID-19 Vaccine ( season) 2024 06/07/2023, 05/19/2022, 01/05/2022, Additional history exists Influenza Vaccine (#1) 2024 , 04/29/2022, 05/03/2021, Additional history exists Tobacco Screening 11/21/2024 11/22/2023 DTaP/Tdap/Td Vaccines (2 - Td or Tdap) 12/09/2027 12/08/2017 HIB Vaccines Aged Out No longer eligi ble based on patient's age to complete this topic HPV Vaccines Aged Out No longer eligi ble based on patient's age to complete this topic Hepatitis A Vaccines Aged Out No long er eligible based on patient's age to complete this topic Hepatitis B Vaccines Aged Out No long er eligible based on patient's age to complete this topic IPV Vaccines Aged Out No longer eligi ble based on patient's age to complete this topic Meningococcal Vaccine Aged Out No keven arpit eligible based on patient's age to complete this topic RSV under 20 months Aged Out No longe r eligible based on patient's age to complete this topic Rotavirus Vaccines Aged Out No longer eligible based on patient's age to complete this topic Insurance [facility] MEDICARE REPLACEMENT PPO * Guarantor: Ty Duran Account Type Relation to Patient Date of Phone Billing Address Personal/[place] [address] * Guarantor: Ty Duran Account Type Relation to Patient Date of Phone Billing Address Personal/[place] [address] Care Teams Console Manager Relationship Specialty Start Date End Date Scottie Leonard MD [address] [place] [id number] PCP - General Internal Medicine 09/05/18
--- OUTSIDE RECORDS SUMMARY | 2024-11-07 19:32 | XMS_ITS | Encounter Summary ---
Author Organization [employer] [facility] Address [address] [place] [address] [address] [place] [address] Care Team Providers Care Psychiatric Security Nurse Name Role Phone Scottie Leonard MD Primary Care Provider Reason for Visit * Reason Comments Med Refill Encounter Details Date Type Department Care Team (Late st Contact Info) Description 10/01/2022 Refill [facility] MEDICINE [address] [place], [place] [phone] Scottie Leonard MD [address] [place] [address] Longstanding persistent atrial fibrillation (CMS/HCC) (Primary Dx) Social History Tobacco Use Types Packs/Day Years Used Date Smoking Tobacco: Never Assessed Sex and Gender Information Value Date Recorded Sex Assigned at Male 07/05/2022 10:21 AM EDT Legal Sex Male 10:21 AM EDT Gender Identity Male 07/05/2022 10:21 AM EDT Sexual Orientation Straight 07/05/2022 10 :21 AM EDT documented as of this encounter Plan of Treatment Not on file documented as of this encounter Visit Diagnoses Diagnosis Longstanding persistent atrial fibrillation (CMS/HCC)- Primary documented in this encounter Care Teams Psychiatric Security Nurse Relationship Specialty Start Date End Date Scottie Leonard MD [address] [place] [address] PCP - General Internal Medicine 09/05/18 documented as of this encounter
--- OUTSIDE RECORDS SUMMARY | 2024-11-07 19:32 | XMS_ITS | Encounter Summary ---
Author Organization [employer] Address [address] [place] [address] [address] [place] [address] Care Team Providers Care Equipment Records Supervisor Name Role Phone Scottie Leonard MD Primary Care Provider [phone] Encounter Details Date Type Department Care Team ([facility] st Contact Info) Description 10/01/2022 Orders Only [facility] CHC MED & PEDS [address] [place], [place] [phone] Nilda Benoit LPN Social History Tobacco Use Types Packs/Day Years [...] documented as of this encounter Visit Diagnoses Not on filedocumented in this encounter Care Teams Equipment Records Supervisor Relationship Specialty Start Date End Date Scottie Leonard MD [address] [place] [address] PCP - General Internal Medicine 09/05/18 documented as of this encounter
--- OUTSIDE RECORDS SUMMARY | 2024-11-07 19:32 | XMS_ITS | Encounter Summary ---
Author Organization [employer] Address [address] [place] [address] [address] [place] [address] Care Team Providers Care Bar Tacker Name Role Phone Scottie Leonard MD Primary Care Provider [phone] Encounter Details Date Type Department Care Team ([facility] st Contact Info) Description 05/23/2024 Orders Only [facility] CHC MED & PEDS [address] [place], [place] [phone] Scottie Leonard MD [address] [place] [address] Social History Tobacco Use Types Packs/Day Years Used Date Smoking Tobacco: Never Smokeless Tobacco: Never Alcohol Use Standard Drinks/Week Comments Never 0 [...] on filedocumented in this encounter Care Teams Bar Tacker Relationship Specialty Start Date End Date Scottie Leonard MD [address] [place] [address] PCP - General Internal Medicine 09/05/18 documented as of this encounter
[2024-11-07] MEDS: gadobutroL 10 ML VIAL IVPUSH (20:47)
[2024-11-07 22:04] VITALS: BP 165/99; PULSE 83; RESP 17; TEMP 36.5; O2SAT 97
[2024-11-07 22:12] VITALS: BP 165/99; PULSE 83; RESP 17; TEMP 36.5; O2SAT 97
== END 2024-11-07 22:21 | disposition home or self-care (01) ==
PROVIDERS: Physician Assistant; Emergency Provider Emergency Medicine
DX: K86.89 Other specified diseases of pancreas (principal); R94.5 Abnormal results of liver function studies; I48.19 Other persistent atrial fibrillation; Z79.01 Long term (current) use of anticoagulants
CPT/HCPCS: 36415; 74183; 76705; 80048; 80076; 81001; 83690; 83735; 85025; 85610; 86140; 93005; 99284; 99285; A9585

== ENCOUNTER → 2024-11-07 17:40 | Outpatient (BNV) | payer MEDICARE, SELFPAY | PROVIDERS: Emergency Provider Emergency Medicine; Visit Provider Radiology Diagnostic Radiology | DX: C25.9 Malignant neoplasm of pancreas, unspecified (principal); K83.8 Other specified diseases of biliary tract; K81.0 Acute cholecystitis | CPT/HCPCS: 74183; 76705 ==

== ENCOUNTER → 2024-11-07 17:42 | Outpatient (BNV) | payer MEDICARE, SELFPAY | PROVIDERS: Emergency Provider Emergency Medicine; Visit Provider Internal Medicine Cardiovascular Disease | DX: I48.91 Unspecified atrial fibrillation (principal) | CPT/HCPCS: 93010 ==

== ENCOUNTER 2024-12-03 13:05 | Inpatient (IN) | payer MEDICARE, SELFPAY ==
--- NOTE | ~2024-12-03 | CT_ITS ---
EXAMINATION: CT ABDOMEN PELVIS WITH IV CONTRAST HISTORY: worsening abd pain and T bili. Known pancreas CA COMPARISON: Correlation is made with MRI of the abdomen dated 11/07/2024. TECHNIQUE: CT scan of the abdomen and pelvis was performed following administration of 85 mL Omnipaque 350 using standard departmental protocol. Coronal and sagittal reformatted images were generated and reviewed. Oral contrast material was not administered at the request of the referring physician. This CT exam was performed with one or more of the following dose reduction techniques: automated exposure control, adjustment of the mA and/or kV according to patient size, use of iterative reconstruction technique. DLP: 563 mGy-cm FINDINGS: LOWER CHEST: The visualized lung bases are clear. There is no pleural effusion. The heart remains markedly enlarged. CARDIOVASCULATURE: The heart is normal in size. There is no pericardial effusion. LIVER: The liver is normal in size and contour. There are multiple new hypodense masses scattered throughout the liver measuring up to 1.6 cm in size, consistent with metastatic disease. Again seen is a 5.6 cm cyst in the right lobe. The hepatic and intrahepatic portal veins are patent. GALLBLADDER / BILE DUCTS: The gallbladder is contracted and demonstrates multiple intraluminal calculi. There is a new stent in the common bile duct. There is gas noted in the area radicles of the left lobe of the liver. SPLEEN: The spleen is normal in size. No focal splenic lesion is identified. PANCREAS: Again seen is atrophy of the pancreatic body and tail with associated dilatation of the pancreatic duct. The previously seen mass in the pancreatic head is larger in size measuring 4.6 x 3.4 x 5.5 cm (previously 2.9 x 2.0 x 2.0 cm). There is occlusion of the portal vein with a small intraluminal filling defect, consistent with a thrombus. ADRENAL GLANDS: Within normal limits. KIDNEYS/RETROPERITONEUM: There is marked atrophy of the right kidney. No renal calculi are identified. There is no hydronephrosis. No renal masses are identified. LYMPH NODES: No abdominal or pelvic lymphadenopathy. VASCULATURE: The abdominal aorta demonstrates atherosclerotic calcification, but is normal in caliber. MESENTERY/PERITONEUM: No free fluid. No masses. There is no free intraperitoneal gas. STOMACH: The stomach is unremarkable. SMALL BOWEL: The small bowel is normal in caliber. COLON: There is a large amount of stool throughout the colon. APPENDIX: The appendix is not seen, however no inflammatory changes are seen adjacent to the cecum. URINARY BLADDER/PELVIC ORGANS: The urinary bladder is unremarkable. The prostate is normal in size. BONES / SOFT TISSUES: There is degenerative disc disease of the spine. CT/CT abdomen pelvis w IV con IMPRESSION: The previously seen pancreatic head mass is larger in size as described. Multiple new masses are seen within the liver, consistent with metastatic disease. Again seen is occlusion of the portal vein with a small intraluminal filling defect, consistent with a thrombus. Electronically signed by: Jama Gtz MD 12/03/2024 04:00 PM EDT
[2024-12-03 13:30] VITALS: BP 111/60; PULSE 66; RESP 18; TEMP 36.9; O2SAT 97; BMI 24.1
[2024-12-03 13:32] LABS: Lipase 51 U/L (8-78)
--- NOTE | 2024-12-03 13:34 | ED_ITS ---
HPI - General Adult General Chief complaint: Urogenital-Female Stated complaint: Abnormal Labs Time Seen by Provider: 12/03/24 13:06 Source: patient and family Mode of arrival: wheelchair Limitations: no limitations History of Present Illness ED Provider: Dr. Nisa Madrigal HPI narrative: Patient comes to the emergency room via wheelchair from the hematology/oncology suite. Earlier today, patient went to see Dr. Cordero for a follow-up. Patient is known to have a mass in the head of the pancreas, hypertension, ITP AFib on Eliquis. On November 16, at [facility], patient had an ERCP, biliary sphincterotomy and stent placement today, patient had an appointment with Dr. Cordero and labs were done earlier in the morning. It was noted that patient's total bilirubin doubled from his previous labs. Patient states that he has chronic abdominal pain, took 1 dose of oxycodone prior to arriving to the emergency room. Patient denies nausea vomiting or diarrhea. Patient's is at bedside, states that he has been eating very little over last few days. Also, the patient's states that treatment toscano, the patient does not want any aggressive treatment including chemotherapy or radiation. Initially, the plan was to transfer the patient from Dr. Cordero's office straight to [facility]. However, the family requested to not send him to [facility] because it would be very difficult for the family to get to [facility] and the family is requesting that we keep the patient here Related Data Home Medications ?Medication ?Instructions ?Recorded ?Confirmed multivitamin 1 tab PO DAILY 06/24/20 12/03/24 diltiazem HCl 300 mg 300 mg PO DAILY 08/04/23 12/03/24 capsule,extended release 24 hr lisinopril 20 1 tab PO DAILY 12/03/24 12/03/24 mg-hydrochlorothiazide 12.5 mg tablet pantoprazole 40 mg tablet,delayed 40 mg PO BID@0630,1630 12/03/24 12/03/24 release Previous Rx's ?Medication ?Instructions ?Recorded apixaban 5 mg tablet (Eliquis) 5 mg PO BID #60 tabs 05/22/24 oxycodone 5 mg tablet 5 mg PO Q8H PRN Breakthrough Pain, 12/03/24 Severe #60 tabs Allergies Allergy/AdvReac Type Severity Reaction Status Date / Time No Known Allergies Allergy Mild NOT Verified 12/03/24 14:13 APPLICABLE Review of Systems Review of Systems: Constitutional : No Weight loss, No Fever, No Chills, No Night Sweats, No Fatigue, No Malaise ENT/Mouth : No Hearing loss, No Ear Pain, No Nasal Congestion, No Sinus Pain, No Hoarseness, No sore throat, No Rhinorrhea, No Swallowing Difficulty Eyes: No Eye Pain, No Swelling, No Redness, No Foreign Body, No Discharge, No Vision Changes Cardiovascular : No Chest Pain, No SOB, No Dyspnea on Exertion, No Orthopnea, No Edema, No Palpitations Respiratory : No Cough, No Sputum, No Wheezing, No Smoke Exposure, No Dyspnea Gastrointestinal : No Nausea, No Vomiting, No Diarrhea, No Constipation, complaining of chronic abdominal pain Genitourinary : no irregular bleeding, No Dysuria, No Urinary Frequency, No Hematuria, No Urinary Incontinence, No Urgency, No Flank Pain, No Urinary Flow Changes, No Hesitancy Musculoskeletal : No joint pain, No Myalgias, No Joint Swelling Skin : No Skin Lesions, No rash Neuro : No Weakness, No Numbness, No Paresthesias, No Loss of Consciousness, No Dizziness, No Headache Psych : No Anxiety/Panic, No Depression, No SI/HI/AH/VH, No Social Issues, Heme/Lymph: No Bruising, No Bleeding,No Lymphadenopathy Endocrine : No Polyuria, No Polydipsia, No Temperature Intolerance [facility] Past Medical History Medical History Persistent atrial fibrillation Chronic ITP (idiopathic thrombocytopenic purpura) History of pancytopenia Surgical History No pertinent past surgical history Family History Family History Mother No problems noted. Father No problems noted. Social History Social History (Updated 12/03/24 @ 10:50 by Amelia Saab) Household Members: Spouse Housing: House Are you a primary restorative care technician to a significant other at home: No Do you presently have visiting nurse or other home services: No Alcohol intake: never Patient Tobacco Use Status: Never used Tobacco Smoked in Last 30 Days: No Use of substances other than those prescribed or required for medical reasons: No Advance Directives: No Advance Directives Information Provided: Yes Do you have a plan to hurt others: No Plan service: No Current occupational status: retired Physical Exam ED Vital Signs: Vital Signs - 24 hr 12/03/24 13:30 12/03/24 15:14 12/03/24 19:16 Temperature 98.5 F 98.4 F 97.9 F Pulse Rate 66 64 78 Respiratory Rate 18 18 16 Blood Pressure 111/60 101/51 L 92/61 Pulse Oximetry 97 95 95 Oxygen Delivery Method Room Air Room Air Room Air BMI result Body Mass Index 24.1 Const Other: Appearance: Alert. Oriented X3. No acute distress. Weak, ill apprearing Eyes: Pupils equal, round and reactive to light. icteric sclerae ENT: Pharynx normal. Neck: Normal inspection. Neck supple. No lymph nodes noted. No crepitus CVS: Normal heart rate and rhythm. Pulses normal. Normal S1 and S2 Respiratory: No respiratory distress. Breath sounds normal. No Wheezing. No rales Abdomen: Soft , yuij-uk-jwcyhqfo tenderness to palpation in periumbilical area, no peritoneal signs No rigidity. No distention. Skin: profusely jaundiced, warm, dry Extremities: No lower extremity edema. No Lacerations. No Rash Neuro: Oriented X 3. No motor deficit. No sensory deficit. Moving all extremities. No slurred speech. CN 2 through 12 grossly intact Psych: calm, cooperative, normal affect Course Course Course Narrative: Dr. Cordero from Hematology/Oncology called us earlier today. Once we get the workup done, I will contact GI and we will likely admit the patient here at [facility] per patient's family request Medications Administered Generic Name Dose Route Start Last Admin Trade Name Freq PRN Reason Stop Dose Admin Sodium Chloride 1,000 mls @ 80 mls/hr 12/03/24 16:15 12/03/24 16:12 Ns IVCONT 80 mls/hr .[id number] ROCCO Administration Discontinued Medications Generic Name Dose Route Start Last Admin Trade Name Freq PRN Reason Stop Dose Admin Sodium Chloride 1,000 mls @ 999 mls/hr 12/03/24 13:32 12/03/24 15:26 Ns IVCONT 12/03/24 14:32 Infused .Q1H1M ONE Infusion Iohexol 100 ml 12/03/24 15:34 12/03/24 15:34 Iohexol 350 Mg/Ml 100 Ml Infus..Btl IV 12/03/24 15:35 85 ml ONCE ONE Administration Medical Decision Making Medical Decision Making [facility] Narrative: My interpretation of labs: Patient's white blood cell count 12.0, LFTs at baseline, total bilirubin 16.6, AST ALT and alk-phos elevated, similar to prior, lipase within normal limits. Patient receiving IV hydration and pain medication CT scan of the abdomen / pelvis shows of the mass in the pancreas may have gotten a bit smaller. However, there are multiple new masses in the liver consistent with metastatic cancer. 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 I discussed the above-mentioned with Dr. Tiwari from Gastroenterology and also with Dr. Cordero from heme /oncology. overall, patient states that he does not wish any interventions to be done. Patient does not want any heme procedures or surgeries. Patient and his family are well aware of how advanced the cancer is. Patient and his family are requesting comfort care measures only, DNR DNI. Patient would like to go home. However, patient's feels very overwhelmed with the situation, overall the family decided that it would be best to keep the patient overnight while we/ case management helps with the process of home hospice. I discussed the patient with Dr. Austin from the Medicine team, patient being admitted for pain control. Likely to be discharged tomorrow with home hospice Differential Diagnosis Differential Diagnoses: The differential diagnosis associated with the presentation includes ( pancreatic cancer, liver metastasis, portal vein thrombosis) Admission/Observation Consideration of admission/observation: Escalation of care including admission/observation considered Consult Healthcare Provider Management of the patient was discussed with: Hospitalist and Field Crop Harvest Worker Lab Data [facility] Lab Attestation statement: I reviewed the patient's lab results. ( I reviewed outpatient labs from today done at this facility) Labs: Lab Results 12/03/24 Range/Units 11:18 Lipase 51 (8-78) U/L Independent Interpretation I performed an independent interpretation of an: CT Scan Radiology Impression Discussion of test interpretation with radiology: I have reviewed the radiologist's reading. Radiologist Impression: HISTORY: worsening abd pain and T bili. Known pancreas CA COMPARISON: Correlation is made with MRI of the abdomen dated 11/07/2024. TECHNIQUE: CT scan of the abdomen and pelvis was performed following administration of 85 mL Omnipaque 350 using standard departmental protocol. Coronal and sagittal reformatted images were generated and reviewed. Oral contrast material was not administered at the request of the referring physician. This CT exam was performed with one or more of the following dose reduction techniques: automated exposure control, adjustment of the mA and/or kV according to patient size, use of iterative reconstruction technique. DLP: 563 mGy-cm FINDINGS: LOWER CHEST: The visualized lung bases are clear. There is no pleural effusion. The heart remains markedly enlarged. CARDIOVASCULATURE: The heart is normal in size. There is no pericardial effusion. LIVER: The liver is normal in size and contour. There are multiple new hypodense masses scattered throughout the liver measuring up to 1.6 cm in size, consistent with metastatic disease. Again seen is a 5.6 cm cyst in the right lobe. The hepatic and intrahepatic portal veins are patent. GALLBLADDER / BILE DUCTS: The gallbladder is contracted and demonstrates multiple intraluminal calculi. There is a new stent in the common bile duct. There is gas noted in the area radicles of the left lobe of the liver. SPLEEN: The spleen is normal in size. No focal splenic lesion is identified. PANCREAS: Again seen is atrophy of the pancreatic body and tail with associated dilatation of the pancreatic duct. The previously seen mass in the pancreatic head is larger in size measuring 4.6 x 3.4 x 5.5 cm (previously 2.9 x 2.0 x 2.0 cm). There is occlusion of the portal vein with a small intraluminal filling defect, consistent with a thrombus. ADRENAL GLANDS: Within normal limits. KIDNEYS/RETROPERITONEUM: There is marked atrophy of the right kidney. No renal calculi are identified. There is no hydronephrosis. No renal masses are identified. LYMPH NODES: No abdominal or pelvic lymphadenopathy. VASCULATURE: The abdominal aorta demonstrates atherosclerotic calcification, but is normal in caliber. MESENTERY/PERITONEUM: No free fluid. No masses. There is no free intraperitoneal gas. STOMACH: The stomach is unremarkable. SMALL BOWEL: The small bowel is normal in caliber. COLON: There is a large amount of stool throughout the colon. APPENDIX: The appendix is not seen, however no inflammatory changes are seen adjacent to the cecum. URINARY BLADDER/PELVIC ORGANS: The urinary bladder is unremarkable. The prostate is normal in size. BONES / SOFT TISSUES: There is degenerative disc disease of the spine. CT/CT abdomen pelvis w IV con IMPRESSION: The previously seen pancreatic head mass is larger in size as described. Multiple new masses are seen within the liver, consistent with metastatic disease. Again seen is occlusion of the portal vein with a small intraluminal filling defect, consistent with a thrombus. Critical Care Time Critical Care Time Critical Care Time: Yes Total Critical Care Time: 60 Attestation: I have personally provided critical care time. Time includes review of lab data, radiology results, discussion with consultants, and monitoring for potential decompensation. Intervention performed as documented. Discharge Plan Discharge Clinical Impression: Pancreatic cancer metastasized to liver Patient Disposition: Admitted As Inpatient Prescriptions: No Action Eliquis 5 mg tablet 5 mg PO BID Qty: 60 11RF multivitamin [One A Day Vitamin] Tablet 1 tab PO DAILY diltiazem HCl 300 mg capsule,extended release 24hr 300 mg PO DAILY oxycodone 5 mg Tablet 5 mg PO Q8H PRN (Reason: Breakthrough Pain, Severe) Qty: 60 0RF Rx Instructions: Partial Fill upon patient request. pantoprazole 40 mg tablet,delayed release (DR/EC) 40 mg PO BID@0630,1630 lisinopril-hydrochlorothiazide 20-12.5 mg tablet 1 tab PO DAILY Print Language: Sri [place]an
[2024-12-03] MEDS: 0.9 % Sodium Chloride 1,000 ML 999 ML IVCONT (14:04)
[2024-12-03 15:14] VITALS: BP 101/51; PULSE 64; RESP 18; TEMP 36.9; O2SAT 95
[2024-12-03] MEDS: iohexoL 350 MG/ML 100 ML INFUS..BTL IV (15:34)
[2024-12-03] MEDS: 0.9 % Sodium Chloride 1,000 ML 80 ML IVCONT (16:12)
--- OUTSIDE RECORDS SUMMARY | 2024-12-03 16:12 | XMS_ITS | Encounter Summary ---
Author Organization [employer] Address [address] [place] [address] [address] [place] [address] Care Team Providers Care Alkylation Operator Name Role Phone Scottie Leonard MD Primary Care Provider Reason for Visit * Reason Comments Med Refill Encounter Details Date Type Department Care Team (Late st Contact Info) Description 10/01/2022 Refill [facility] MED[facility]INE [address] [place], [place] [phone] Scottie Leonard MD [address] [place] [address] Longstanding persistent atrial fibrillation (CMS/HCC) (Primary Dx) [...] Primary documented in this encounter Care Teams Alkylation Operator Relationship Specialty Start Date End Date Scottie Leonard MD [address] [place] [address] PCP - General Internal Medicine 09/05/18 documented as of this encounter
--- OUTSIDE RECORDS SUMMARY | 2024-12-03 16:12 | XMS_ITS | Clinical Summary ---
Author Organization [employer] Address [address] [facility] [address] [place] [address] Care Team Providers Care Roll Mechanic Name Role Phone Scottie Leonard MD Primary Care Provider [phone]- [phone] Allergies No known active allergies Medications Elastic Bandages & Supports (Medical Compression Stockings) miscIndications:E meet, lower extremity 15-20 mm /Hg. Knee high. Dx Edema lower limbs. 2 each 3 Active lisinopril-hydroC HLOROthiazide 10-12.5 MG tabletIndications :Primary hypertension Take 1 tablet by mouth in the morning. 90 tablet 3 4 Active warfarin (Jantoven) 5 MG tabletIndications :Longstanding [...] 05/06/2020 Monoclonal gammopathy of unknown significance (M LADONNA) 05/06/2020 Atrial fibrillation 10/17/2012 Hypertension 10/17/2012 Encounters Date Type Department Care Team Description 09/23/2024 Refill [facility] [address] [place] [address] Scottie Leonard MD Longstanding persistent atrial fibrillation [...] patient's age to complete this topic [place] [id number] * Guarantor: Ty Duran Account Type Relation to Patient Date of Phone Billing Address Personal/[place] [address] * Guarantor: Ty Duran Account Type Relation to Patient Date of Phone Billing Address Personal/[place] [address] * Guarantor: Ty Duran Account Type Relation to Patient Date of Phone Billing Address Personal/[place] [address] Care Teams Roll Mechanic Relationship Specialty Start Date End Date Scottie Leonard MD [address] [place] [address] [place] [address] PCP - General Internal Medicine 09/05/18
--- OUTSIDE RECORDS SUMMARY | 2024-12-03 16:12 | XMS_ITS | Encounter Summary ---
Author Organization [employer] Address [address] [place] [address] [address] [place] [address] Care Team Providers Care Flight Test Shop Mechanic Name Role Phone Scottie Leonard MD Primary Care Provider Encounter Details Date Type Department Care Team ([facility] st Contact Info) Description 05/23/2024 Orders Only [facility] MED & PEDS [address] [place], [place] [phone] Scottie Leonard MD [address] [place] [address] Social History Tobacco Use Types Packs/Day Years [...] on filedocumented in this encounter Care Teams Flight Test Shop Mechanic Relationship Specialty Start Date End Date Scottie Leonard MD [address] [place] [address] PCP - General Internal Medicine 09/05/18 documented as of this encounter
--- OUTSIDE RECORDS SUMMARY | 2024-12-03 16:12 | XMS_ITS | Encounter Summary ---
Author Organization [employer] Address [address] [place] [address] [address] [place] [address] Care Team Providers Care Senior Linux Systems Administrator Name Role Phone Scottie Leonard MD Primary Care Provider [phone]- [phone] Encounter Details Date Type Department Care Team ([facility] st Contact Info) Description 10/01/2022 Orders Only [facility] MED & PEDS [address] [place], [place] [phone] Nilda Benoit LPN Social History Tobacco Use [...] on filedocumented in this encounter Care Teams Senior Linux Systems Administrator Relationship Specialty Start Date End Date Scottie Leonard MD [address] [place] [address] PCP - General Internal Medicine 09/05/18 documented as of this encounter
--- NOTE | 2024-12-03 16:42 | PHA.MEDREC ---
Pharmacy Consult ? Medication Reconciliation Pharmacy has completed the medication reconciliation.UTILIZED LIST FROM [facility] WHICH ALSO MATCHED CLAIM HISTORY
[2024-12-03 19:16] VITALS: BP 92/61; PULSE 78; RESP 16; TEMP 36.6; O2SAT 95
--- NOTE | 2024-12-03 19:17 | MHC.EDTECH ---
This pct assumed care of Patient at 1900 ,vitals taken ,Patient resting quietly in bed .
--- NOTE | 2024-12-03 19:52 | PM.IMHP ---
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 Cordero. On November 16, at [facility], patient had an ERCP, biliary sphincterotomy and stent placement. This morning had follow up with Dr. Cordero and labs were drawn. The patient's bilirubin had nearly doubled since prior labs (8.5-->16.6 this morning).His patient's states that he has been eating very little as the patient states this causes him severe abdominal discomfort which is now becoming persistent. No n/v/d. No fevers or chills. The plan had initially been too transfer the patient to [facility]. However, the and patient state that they do not wish to pursue aggressive management including chemotherapy or radiation. Ultimately, the family and patient have decided to withdraw all care and to pursue comfort measures only. Review of Systems Review of Systems: Yes all other systems are reviewed and are negative [facility] Medical History Persistent atrial fibrillation Chronic ITP (idiopathic thrombocytopenic purpura) History of pancytopenia Family History Mother No problems noted. Father No problems noted. Surgical History No pertinent past surgical history Social History Household Members: Spouse Housing: House Are you a primary care manager cna to a significant other at home: No Do you presently have visiting nurse or other home services: No Alcohol intake: never Patient Tobacco Use Status: Never used Tobacco Smoked in Last 30 Days: No Use of substances other than those prescribed or required for medical reasons: No Advance Directives: No Advance Directives Information Provided: Yes Do you have a plan to hurt others: No Plan service: No Current occupational status: retired Meds Allergies Allergy/AdvReac Type Severity Reaction Status Date / Time No Known Allergies Allergy Mild NOT Verified 12/03/24 14:13 APPLICABLE Active Medications: Current Medications Sodium Chloride (Ns) 1,000 mls @ 80 mls/hr IVCONT .[id number] ROCCO Stop: 12/03/24 19:48 Last Admin: 12/03/24 16:12 Dose: 80 mls/hr Home Medications ?Medication ?Instructions ?Recorded ?Confirmed ?Last Taken ?Type multivitamin 1 tab PO DAILY 06/24/20 12/03/24 Unknown History diltiazem HCl 300 mg 300 mg PO DAILY 08/04/23 12/03/24 Unknown History capsule,extended release 24 hr lisinopril 20 1 tab PO DAILY 12/03/24 12/03/24 Unknown History mg-hydrochlorothiazide 12.5 mg tablet pantoprazole 40 mg tablet,delayed 40 mg PO BID@0630,1630 12/03/24 12/03/24 Unknown History release Physical Exam Vital Signs and Narrative: Vital Signs: Last Vital Signs Temp 97.9 F 12/03/24 19:16 Pulse 78 12/03/24 19:16 Resp 16 12/03/24 19:16 BP 92/61 12/03/24 19:16 Pulse Ox 95 12/03/24 19:16 O2 Del Method Room Air 12/03/24 19:16 BMI result Body Mass Index 24.1 Constitutional - Awake and Alert, cachectic, No apparent distress Respiratory - No respiratory distress or increased work of breathing Skin - Warm/Dry. Jaundice Results Labs Labs: Laboratory Results - last 24 hr 12/03/24 11:18 Lipase 51 Imaging Radiologist's Impressions: Impressions Abdomen/Pelvis CT 12/03/24 15:38 IMPRESSION: The previously seen pancreatic head mass is larger in size as described. Multiple new masses are seen within the liver, consistent with metastatic disease. Again seen is occlusion of the portal vein with a small intraluminal filling defect, consistent with a thrombus. 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 Cordero. On November 16, at [facility], patient had an ERCP, biliary sphincterotomy and stent placement. The family and patient have requested to pursue comfort measures only and to withdrawal all other care, no chemotherapy or radiation to be pursued. Adenocarcinoma of the head of the pancreas with metastasis to the liver Persistent atrial fibrillation Hypertension Sleep apnea Chronic right-sided heart failure ITP The patient and family have elected to withdraw care for his metastatic pancreatic cancer and does not wish to pursue chemotherapy or radiation. Instead they desire to focus on comfort measures and quality of life. They understand this will withdrawing all other care. Prescription medications, labs and vital signs will be discontinued and the plan is for discharge home for further comfort care. He will be admitted for comfort measures including: prn morphine prn ativan/haldol prn zofran scopalomine docusate Patient does desire to eat and drink should his appetite allow. 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
--- NOTE | 2024-12-03 19:58 | MHC.CM.ED ---
Addendum entered by Reny Hendrix 12/03/24 20:20: Pt is not GIP. Family requesting home hospice. Aware that hospice will reach out to them for informational meeting. Original Note: CM met with patient, his and his step-daughter at the request of Dr. Madrigal. Pt is requesting comfort care and hospice. Met with Dr. Cordero today. According to the patient, there is nothing they can offer him in treatment options. He has adenocarcinoma or the pancreas with liver mets. His liver studies are elevated. He is jaundiced. He is C/O itching, feeling anxious and having some pain. Dr. Madrigal aware. Pt was diagnosed about a month ago. He lives with his . Has no services or DME, however they have many types of DME at home secondary to his 's medical concerns. His /HCP is Holly Duran ([phone]). CM spoke at length about POURER, medications available and goals for comfort. Pt is agreeable to overnight stay for pain management, but ultimately would like to go home with hospice. CM spoke with patient, and step daughter about hospice and explained that a consult will be made, if agreeable to [facility] and Hospice. Patient's feels she can care for her with help from her daughter. CM explained that she may need more help as her 's conditions worsens and he needs more help with ADL's. Pt will be admitted for POURER. CM will place hospice referral. CM contact card given.
--- NOTE | 2024-12-03 20:12 | PC.NURSE ---
This RN attempted to medicate the patient as ordered on behalf of primary RN (Melissa Hernández). Patient refused stating I don't need any of that right now. If I need it, I'll ask for it and let you know. . Primary RN notified.
[2024-12-03 21:27] VITALS: RESP 16
[2024-12-03] MEDS: 0.9 % Sodium Chloride Flush 3 ML SYRINGE IVFLUSH (23:35)
[2024-12-04 03:33] VITALS: BP 134/66; PULSE 98; RESP 18; TEMP 36.3; O2SAT 96; BMI 23.5
[2024-12-04] MEDS: 0.9 % Sodium Chloride Flush 3 ML SYRINGE IVFLUSH (07:27)
[2024-12-04 07:33] VITALS: BP 134/90; PULSE 95; RESP 16; TEMP 37.1; O2SAT 97
--- NOTE | 2024-12-04 10:15 | MHC.CM.PN ---
IMM DELIVERED PT LIVES WITH SPOUSE AND IS FUNCTIONALLY INDEPENDENT. PT HAS BED SIMILAR TO HOSPITAL, RAISES UP/DOWN AND HAS BARS IN BR. + HCP AT HOME, ANTHONY WILL BRING IN. PCP DR. HENDERSON AT [facility] [place]. DP: [facility] WITH [facility] IS THE PLAN. PT/ [place] [facility] [place]AN TO [place]. FAMILY WILL TRANSPORT HOME. CM WILL CONTINUE TO FOLLOW FOR ANY CHANGE TO DC PLAN.
--- NOTE | 2024-12-04 11:04 | PM.DS ---
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 Cordero. On November 16, at [facility], patient had an ERCP, biliary sphincterotomy and stent placement. This morning had follow up with Dr. Cordero and labs were drawn. The patient's bilirubin had nearly doubled since prior labs (8.5-->16.6 this morning).His patient's states that he has been eating very little as the patient states this causes him severe abdominal discomfort which is now becoming persistent. No n/v/d. No fevers or chills. The plan had initially been too transfer the patient to [facility]. However, the and patient state that they do not wish to pursue aggressive management including chemotherapy or radiation. Ultimately, the family and patient have decided to withdraw all care and to pursue comfort measures only. hospital course: Patient was admitted for adenocarcinoma of the head the pancreas with metastasis to liver and obstruction. Patient was set up with home hospice. We will discontinue medications directed at his chronic medical conditions which include persistent atrial fibrillation, hypertension, sleep apnea, chronic right-sided heart failure, ITP. Time Attestation Discharge Coordination Time (in mins): 33 Quality: Safe Use of Opioids Does Pt have an Active Cancer Diagnosis on the Problem List?: Yes Opioid Measure Date for [facility] Report: 11/04/24 Opioid Measure Time for [facility] Report: 11:04 Quality: Stroke Does the patient have a stroke diagnosis?: No Physical Exam Vital Signs: Vital Signs: Last Vital Signs Temp 98.8 F 12/04/24 07:33 Pulse 95 12/04/24 07:33 Resp 16 12/04/24 07:33 BP 134/90 H 12/04/24 07:33 Pulse Ox 97 12/04/24 07:33 O2 Del Method Room Air 12/04/24 07:33 BMI result Body Mass Index 23.5 General: AO X 3, no acute distress, jaundiced Resp: CTA bilateral, no accessory muscles used CVS: S1,S2,RRR GI: soft, non tender, non distended Neuro: motor grossly intact, alert Psych: appropriate affect, appropriate insight DS: Data Data Completed and Pending Labs on day of discharge: Laboratory Results - last 24 hr 12/03/24 11:18 Lipase 51 Discharge Plan Discharge Anticipated Discharge Date/Time: 12/04/24 11:01 Patient Disposition: Hospice - Home Discharge Diagnosis: pancreatic cancer Referrals: Melissa Morgan MD [Primary Care Provider] - 1 Week Discharge Medications: New ondansetron 4 mg Tablet,Disintegrating 4 mg translingual Q8H PRN (Reason: Nausea And Vomiting) Qty: 90 0RF morphine concentrate 100 mg/5 mL (20 mg/mL) solution 5 mg PO Q3H PRN (Reason: pain/comfort) 15 Days Qty: 30 0RF Rx Instructions: Partial Fill upon patient request. lorazepam 0.5 mg tablet 0.5 mg PO Q6H PRN (Reason: anxiety/restlessness) 4 Days Qty: 16 0RF lorazepam [Lorazepam Intensol] 2 mg/mL concentrate 0.5 mg PO Q4H PRN (Reason: anxiety/restlessness) Qty: 30 0RF Continued oxycodone 5 mg Tablet 5 mg PO Q8H PRN (Reason: Breakthrough Pain, Severe) Qty: 60 0RF Rx Instructions: Partial Fill upon patient request. pantoprazole 40 mg tablet,delayed release (DR/EC) 40 mg PO BID@0630,1630 Discontinued Eliquis 5 mg tablet 5 mg PO BID Qty: 60 11RF multivitamin [One A Day Vitamin] Tablet 1 tab PO DAILY diltiazem HCl 300 mg capsule,extended release 24hr 300 mg PO DAILY lisinopril-hydrochlorothiazide 20-12.5 mg tablet 1 tab PO DAILY Discharge Orders: Discharge Order (Routine); Ordered 12/04/24 Ordered By: Ajay Sims Diet: Advance to usual diet Activity on Discharge: As tolerated Stand Alone Forms: Patient Portal Discharge page Print Language: Divehi Care Plan Goals: Maximize quality of life Health Concerns: Pancreatic cancer Plan of Treatment: End of life care Assessment: See above
== END 2024-12-04 14:45 | disposition hospice, home (50) | DRG 951 ==
LOC: HO.ED 19:36 → HO.EDOVER 20:04 → HO.S3 12-04 01:08
PROVIDERS: Admitting Provider Physician Assistant; Emergency Provider Emergency Medicine; PCP Internal Medicine; Visit Provider Internal Medicine
DX: Z51.5 Encounter for palliative care (principal); C25.0 Malignant neoplasm of head of pancreas; C78.7 Secondary malignant neoplasm of liver and intrahepatic bile duct; D69.3 Immune thrombocytopenic purpura; I48.19 Other persistent atrial fibrillation; G47.30 Sleep apnea, unspecified; I11.0 Hypertensive heart disease with heart failure; I50.812 Chronic right heart failure; Z79.01 Long term (current) use of anticoagulants; Z79.899 Other long term (current) drug therapy
CPT/HCPCS: 74177; 83690; 99285; Q9967

== ENCOUNTER → 2024-12-03 13:30 | Outpatient (BNV) | payer MEDICARE, SELFPAY | PROVIDERS: Emergency Provider Emergency Medicine; PCP Internal Medicine; Visit Provider Radiology Diagnostic Radiology | DX: R10.9 Unspecified abdominal pain (principal) | CPT/HCPCS: 74177 ==

== ENCOUNTER → 2024-12-03 19:48 | Outpatient (BNV) | payer MEDICARE, SELFPAY | PROVIDERS: Admitting Provider Physician Assistant; Emergency Provider Emergency Medicine; PCP Internal Medicine; Visit Provider Physician Assistant | DX: C25.9 Malignant neoplasm of pancreas, unspecified (principal); C78.7 Secondary malignant neoplasm of liver and intrahepatic bile duct | CPT/HCPCS: 99223; 99239 ==